=== PATIENT | male | born 1975 | race African-American/Black ===

== ENCOUNTER 2019-01-11 18:25 | Inpatient (IN) ==
[2019-01-11] MEDS ORDERED: ASPIRIN 325 MG TABLET PO STA (19:02)
[2019-01-11] MEDS ORDERED: ALUM/MAG/SIMETH/LIDO VISC 1:1 30 ML BOTTLE PO STA (19:09)
[2019-01-11] MEDS ORDERED: FAMOTIDINE 20 MG/2 ML VIAL IV STA (19:09)
[2019-01-11] MEDS ORDERED: SODIUM CHLORIDE 0.9% 1,000 ML IV STA (19:09)
[2019-01-11] MEDS ORDERED: ONDANSETRON 4 MG/2 ML VIAL IV STA (19:09)
[2019-01-11 19:12] LABS: Basophils # 0.1 10*3/uL (0.0-0.2); Basophils % 0.4 % (0.0-0.8); Eosinophils % 0.1 % (0.00-10.9); Hematocrit 51.6 VOL% (42.0-52.0); Hemoglobin 17.5 GM/DL (14.0-18.0); Immature Granulocytes % 0.8 %; Immature Granulocytes Absolute 0.11 #; Lymphocytes # 0.5 10*3/uL (1.4-4.0); Lymphocytes % 3.2 % (21.2-54.2); Mean Corpuscular HGB Conc 33.9 GM/DL (32-36); Mean Corpuscular Volume 96.4 FL (87-102); Mean Platelet Volume 10.3 FL (9.6-12.0); Monocytes % 3.8 % (1.7-12.7); Neutrophils % 91.7 % (38.7-73.9); Platelet Count 236 T/CUMM (130-400); Red Blood Count 5.35 MC/CUMM (3.8-5.5); Red Cell Distribution Width 14.1 % (9.3-17.3); White Blood Count 14.1 T/CUMM (4-12)
[2019-01-11 19:22] LABS: Bilirubin,Total 1.2 MG/DL (0.2-1.0); Osmolality,Calculated 272.7 MOS/KG (273-304); Total Protein 7.9 G/DL (6.4-8.3)
[2019-01-11 19:38] LABS: Lymphocytes 4 % (20-55); Segmented Neutrophils 95 % (50-85)
[2019-01-11 19:39] LABS: Platelet Estimate Adequate; Total Cells Counted 100
[2019-01-11] MEDS ORDERED: MORPHINE 4 MG/1 ML VIAL IV STA (22:15)
[2019-01-11] MEDS ORDERED: THIAMINE INJ 100 MG, FOLIC ACID INJ 1 MG, MAGNESIUM SULF INJ 2 GM, MULTIVITAMIN INJ 10 ... IV ONE (23:39)
[2019-01-12] MEDS ORDERED: ONDANSETRON 4 MG/2 ML VIAL IV PRN (00:30)
[2019-01-12] MEDS ORDERED: ZALEPLON 5 MG CAPSULE PO PRN (00:30)
[2019-01-12] MEDS ORDERED: PROMETHAZINE 25 MG TABLET PO PRN (00:30)
[2019-01-12] MEDS ORDERED: MORPHINE 4 MG/1 ML VIAL IV PRN (00:30)
[2019-01-12] MEDS ORDERED: DOCUSATE SODIUM 100 MG CAPSULE PO PRN (00:30)
[2019-01-12] MEDS ORDERED: LORazepam 2 MG/1 ML VIAL IV PRN (00:34)
[2019-01-12] MEDS ORDERED: hydrALAZINE 20 MG/1 ML VIAL IV PRN (00:35)
[2019-01-12] MEDS: cefTRIAXone 1,000 MG in SYRINGE 1 EACH IV SCH (02:21)
[2019-01-12] MEDS: amLODIPine 5 MG TABLET PO SCH ×2 (02:21→09:02)
[2019-01-12] MEDS: metroNIDAZOLE INJ 500 MG in PREMIX 1 EACH IV SCH ×3 (02:28→17:22)
[2019-01-12 05:33] LABS: Basophils % 0.1 % (0.0-0.8); Eosinophils % 0.1 % (0.00-10.9); Hematocrit 46.3 VOL% (42.0-52.0); Hemoglobin 15.7 GM/DL (14.0-18.0); Immature Granulocytes % 0.6 %; Immature Granulocytes Absolute 0.09 #; Lymphocytes # 0.7 10*3/uL (1.4-4.0); Lymphocytes % 4.9 % (21.2-54.2); Mean Corpuscular HGB Conc 33.9 GM/DL (32-36); Mean Corpuscular Volume 96.9 FL (87-102); Mean Platelet Volume 10.1 FL (9.6-12.0); Neutrophils % 87.3 % (38.7-73.9); Platelet Count 212 T/CUMM (130-400); Red Blood Count 4.78 MC/CUMM (3.8-5.5); Red Cell Distribution Width 13.7 % (9.3-17.3); White Blood Count 14.4 T/CUMM (4-12)
[2019-01-12 06:02] LABS: Albumin 3.2 G/DL (3.4-5.0); Bilirubin,Total 1.1 MG/DL (0.2-1.0); Calcium 8.3 MG/DL (8.5-10.1); Osmolality,Calculated 273.5 MOS/KG (273-304); Total Protein 6.7 G/DL (6.4-8.3)
[2019-01-12 06:11] LABS: Lymphocytes 3 % (20-55); Segmented Neutrophils 94 % (50-85); Total Cells Counted 100
[2019-01-12 06:12] LABS: Platelet Estimate Adequate; Polychromasia Few
[2019-01-12 07:04] LABS: Apearance,Urine CLEAR (Clear); Bacteria,Urine Occasional /HPF (Few); Bilirubin,Urine Negative (Negative); Blood, Urine Negative (Negative); Glucose,Urine (UA) >=500 mg/dL (Negative); Ketones,Urine Negative (Negative); Mucus,Urine Occasional /LPF (Occasional); Nitrite,Urine Negative (Negative); Protein,Urine Negative; RBC,Urine 2 /HPF (0-4); Squamous Epithelial Cell,Urine Occasional /HPF (0-10); Urine Color Yellow (Yellow); Urine Specific Gravity 1.028 (1.001-1.035); Urine Urobilinogen < 2.0 EU/DL (0.2-1.0); WBC,Urine 3 /HPF (0-6)
[2019-01-12] MEDS: ENOXAPARIN 40 MG/0.4 ML SYRINGE SUBCUT SCH (09:18)
[2019-01-12] MEDS: NICOTINE 21 MG/24 HR PATCH TRANSDERM SCH (09:18)
[2019-01-12] MEDS ORDERED: LACTATED RINGERS 1,000 ML IV SCH (21:30)
[2019-01-13] MEDS ORDERED: THIAMINE INJ 100 MG, FOLIC ACID INJ 1 MG, MULTIVITAMIN INJ 10 ML in DEXTROSE 5% NACL 0.... IV SCH
[2019-01-13] MEDS: metroNIDAZOLE INJ 500 MG in PREMIX 1 EACH IV SCH ×3 (02:05→09:09)
[2019-01-13] MEDS: cefTRIAXone 1,000 MG in SYRINGE 1 EACH IV SCH (02:06)
[2019-01-13] MEDS ORDERED: PHENYTOIN ER 100 MG CAPSULE PO SCH (09:00)
[2019-01-13] MEDS: amLODIPine 5 MG TABLET PO SCH (09:06)
[2019-01-13] MEDS: NICOTINE 21 MG/24 HR PATCH TRANSDERM SCH (09:06)
[2019-01-13] MEDS: ENOXAPARIN 40 MG/0.4 ML SYRINGE SUBCUT SCH (09:06)
[2019-01-13 12:31] VITALS: BP 153/98
== END 2019-01-13 12:32 | disposition home or self-care (01) | DRG 439 ==
LOC: N.ED 18:25 → N.EDINP 01-12 00:30 → SUATTDRO 01-12 00:30 → N.5E 01-12 01:03
PROVIDERS: ADMIT Hospitalist; ATTEND Internal Medicine Nephrology

== ENCOUNTER 2021-07-20 11:25 | Inpatient (IN) ==
[2021-07-20 12:04] LABS: Basophils # 0.1 10*3/uL (0.0-0.2); Basophils % 0.4 % (0.0-0.8); Hematocrit 48.2 VOL% (42.0-52.0); Hemoglobin 15.3 GM/DL (14.0-18.0); Immature Granulocytes % 1.9 %; Immature Granulocytes Absolute 0.39 #; Lymphocytes # 0.6 10*3/uL (1.4-4.0); Lymphocytes % 3.1 % (21.2-54.2); Mean Corpuscular HGB Conc 31.7 GM/DL (32-36); Mean Corpuscular Volume 115.6 FL (87-102); Mean Platelet Volume 10.7 FL (9.6-12.0); Neutrophils % 89.6 % (38.7-73.9); Platelet Count 191 T/CUMM (130-400); Red Blood Count 4.17 MC/CUMM (3.8-5.5); White Blood Count 20.5 T/CUMM (4-12)
[2021-07-20 12:26] LABS: Albumin 3.7 G/DL (3.4-5.0); Bilirubin,Total 2.9 MG/DL (0.20-1.00); Osmolality,Calculated 254.2 MOS/KG (273-304); Potassium 5.6 MMOL/L (3.5-5.1); Total Protein 7.6 G/DL (6.4-8.2)
[2021-07-20 12:29] LABS: Lymphocytes 3 % (20-55); Platelet Estimate Adequate; Total Cells Counted 100
[2021-07-20 12:30] LABS: Anisocytosis 1+; Macrocytosis 1+
[2021-07-20] MEDS ORDERED: SODIUM CHLORIDE 0.9% 1,000 ML IV STA (15:17)
[2021-07-20 15:19] LABS: Hyaline Casts,Urine 82 /LPF (0-3); Mucus,Urine Occasional /LPF (Occasional); RBC,Urine 2 /HPF (0-4); Squamous Epithelial Cell,Urine Occasional /HPF (0-10)
[2021-07-20 15:21] LABS: Bilirubin,Urine Negative (Negative); Blood, Urine Moderate mg/dL (Negative); Glucose,Urine (UA) Negative (Negative); Ketones,Urine 15 mg/dL (Negative); Nitrite,Urine Negative (Negative); Protein,Urine 30 mg/dL (Negative); Urine Appearance Clear (Clear); Urine Color Yellow (Yellow); Urine Urobilinogen 0.2 eU/dL (<2.0); Urine pH 5.5 (4.5-8.0)
[2021-07-20] MEDS ORDERED: ONDANSETRON 4 MG/2 ML VIAL IV STA (15:21)
[2021-07-20] MEDS ORDERED: MORPHINE 2 MG/1 ML SYRINGE IV STA (15:21)
[2021-07-20] MEDS ORDERED: PIPERACILLIN/TAZOBACTAM 3,375 MG in SODIUM CHLORIDE 0.9% 100 ML IV STA (15:22)
[2021-07-20] MEDS ORDERED: MORPHINE 2 MG/1 ML SYRINGE ONE (15:24)
[2021-07-20 15:25] LABS: Barbiturates Screen,Urine Negative (Negative); Benzodiazepines Screen,Urine Negative (Negative); Cannabinoid Screen,Urine Negative (Negative); Opiate Screen,Urine Negative (Negative); Phencyclidine Screen,Urine Negative (Negative)
[2021-07-20] MEDS ORDERED: SODIUM CHLORIDE 0.9% 2,400 ML IV ONE (16:58)
[2021-07-20] MEDS ORDERED: hydrALAZINE 20 MG/1 ML VIAL IV PRN (17:18)
[2021-07-20] MEDS ORDERED: ONDANSETRON 4 MG/2 ML VIAL IV PRN (17:18)
[2021-07-20] MEDS ORDERED: ACETAMINOPHEN 325 MG TABLET PO PRN (17:18)
[2021-07-20] MEDS ORDERED: GLUCAGON 1 MG VIAL IM PRN (17:18)
[2021-07-20] MEDS ORDERED: DEXTROSE 10% 250 ML BAG IV PRN (17:25)
[2021-07-20 17:57] LABS: Arterial Base Excess iSTAT -20 MMOL/L (-2.5-2.5); Arterial Bicarbonate iSTAT 6.5 MMOL/L (20-26); Arterial O2 Saturation iSTAT 98 % (95-100); Arterial PCO2 iSTAT 19 MM HG (35-48); Arterial PO2 iSTAT 124 MM HG (80-95); Arterial Total CO2 iSTAT 7 MMO/L (23-27); Arterial pH iSTAT 7.157 (7.35-7.45)
[2021-07-20] MEDS: LORazepam 2 MG/1 ML VIAL IV PRN (18:25)
[2021-07-20] MEDS ORDERED: DIAZEPAM 10 MG/2 ML SYRINGE IV ONE (19:29)
[2021-07-20] MEDS ORDERED: diphenhydrAMINE 50 MG/1 ML VIAL IV ONE (19:50)
[2021-07-20] MEDS ORDERED: HALOPERIDOL 5 MG/ML AMP IM ONE (19:50)
[2021-07-20] MEDS: SODIUM ZIRCONIUM CYCLOSILICATE 10 GM PACK PO SCH (20:24)
[2021-07-20] MEDS: SODIUM BICARB INJ 150 MEQ in DEXTROSE 5% 1,000 ML IV SCH (20:28)
[2021-07-20 20:54] LABS: Arterial Base Excess iSTAT -21 MMOL/L (-2.5-2.5); Arterial Bicarbonate iSTAT 6.8 MMOL/L (20-26); Arterial O2 Saturation iSTAT 96 % (95-100); Arterial PCO2 iSTAT 21 MM HG (35-48); Arterial PO2 iSTAT 105 MM HG (80-95); Arterial Total CO2 iSTAT 7 MMO/L (23-27); Arterial pH iSTAT 7.121 (7.35-7.45)
[2021-07-20 20:55] LABS: Basophils % 0.1 % (0.0-0.8); Hematocrit 39.3 VOL% (42.0-52.0); Hemoglobin 12.4 GM/DL (14.0-18.0); Immature Granulocytes % 1.6 %; Immature Granulocytes Absolute 0.41 #; Lymphocytes # 0.6 10*3/uL (1.4-4.0); Lymphocytes % 2.2 % (21.2-54.2); Mean Corpuscular HGB Conc 31.6 GM/DL (32-36); Mean Corpuscular Volume 116.3 FL (87-102); Mean Platelet Volume 10.6 FL (9.6-12.0); Monocytes # 1.5 10*3/uL (0.11-0.8); Monocytes % 5.8 % (1.7-12.7); Neutrophils % 90.3 % (38.7-73.9); Platelet Count 160 T/CUMM (130-400); Red Blood Count 3.38 MC/CUMM (3.8-5.5); Red Cell Distribution Width 15.9 % (9.3-17.3); White Blood Count 25.3 T/CUMM (4-12)
[2021-07-20 21:20] LABS: Lymphocytes 4 % (20-55); Total Cells Counted 100
[2021-07-20 21:21] LABS: Platelet Estimate Adequate
[2021-07-20 21:22] LABS: Macrocytosis 1+
[2021-07-20] MEDS ORDERED: SODIUM CHLORIDE 0.9% 1,000 ML IV ONE (21:33)
[2021-07-20] MEDS ORDERED: SODIUM BICARBONATE 50 MEQ/50 ML VIAL IV ONE (21:34)
[2021-07-20] MEDS ORDERED: VANCOMYCIN INJ 1,250 MG in SODIUM CHLORIDE 0.9% 250 ML IV SCH (22:00)
[2021-07-20] MEDS: PIPERACILLIN/TAZOBACTAM 3,375 MG in SODIUM CHLORIDE 0.9% 100 ML IV SCH ×2 (22:23→22:24)
[2021-07-21 00:03] LABS: Arterial Base Excess iSTAT -18 MMOL/L (-2.5-2.5); Arterial Bicarbonate iSTAT 8.4 MMOL/L (20-26); Arterial O2 Saturation iSTAT 96 % (95-100); Arterial PCO2 iSTAT 23 MM HG (35-48); Arterial PO2 iSTAT 104 MM HG (80-95); Arterial Total CO2 iSTAT 9 MMO/L (23-27); Arterial pH iSTAT 7.176 (7.35-7.45)
[2021-07-21 00:08] LABS: Albumin 2.7 G/DL (3.4-5.0); Bilirubin,Total 2.7 MG/DL (0.20-1.00); Calcium 8.9 MG/DL (8.5-10.1); Osmolality,Calculated 253.4 MOS/KG (273-304); Total Protein 5.8 G/DL (6.4-8.2)
[2021-07-21 00:11] LABS: Potassium 6.3 MMOL/L (3.5-5.1)
[2021-07-21] MEDS: PIPERACILLIN/TAZOBACTAM 3,375 MG in SODIUM CHLORIDE 0.9% 100 ML IV SCH ×2 (01:34→08:46)
[2021-07-21] MEDS: LORazepam 2 MG/1 ML VIAL IV PRN ×3 (01:35→13:37)
[2021-07-21] MEDS: SODIUM POLYSTYRENE SULFATE 15 GM/60 ML BOTTLE RECTAL ONE ×2 (01:36→03:40)
[2021-07-21] MEDS: SODIUM ZIRCONIUM CYCLOSILICATE 10 GM PACK PO SCH ×4 (01:37→20:45)
[2021-07-21 02:15] LABS: Basophils # 0.1 10*3/uL (0.0-0.2); Basophils % 0.2 % (0.0-0.8); Hematocrit 38.8 VOL% (42.0-52.0); Hemoglobin 12.3 GM/DL (14.0-18.0); Immature Granulocytes % 0.9 %; Immature Granulocytes Absolute 0.25 #; Lymphocytes # 0.6 10*3/uL (1.4-4.0); Lymphocytes % 2.1 % (21.2-54.2); Mean Corpuscular HGB Conc 31.7 GM/DL (32-36); Mean Corpuscular Volume 114.5 FL (87-102); Mean Platelet Volume 10.6 FL (9.6-12.0); Monocytes % 3.8 % (1.7-12.7); Platelet Count 141 T/CUMM (130-400); Red Blood Count 3.39 MC/CUMM (3.8-5.5); Red Cell Distribution Width 15.7 % (9.3-17.3); White Blood Count 26.5 T/CUMM (4-12)
[2021-07-21 02:26] LABS: PT Patient Result 21.2 SECS (10.5-12.0)
[2021-07-21 02:37] LABS: Platelet Estimate Adequate; Total Cells Counted 100
[2021-07-21 02:38] LABS: Macrocytosis 2+
[2021-07-21 02:40] LABS: Albumin 2.9 G/DL (3.4-5.0); Bilirubin,Total 2.9 MG/DL (0.20-1.00); Osmolality,Calculated 252.5 MOS/KG (273-304); Potassium 5.9 MMOL/L (3.5-5.1); Risk Ratio 4.85; Thyroid Stimulating Hormone 2.29 uIU/ml (0.358-3.74); Total Protein 5.8 G/DL (6.4-8.2); VLDL Cholesterol 36.6 MG/DL
[2021-07-21] MEDS ORDERED: HALOPERIDOL 5 MG/ML AMP IM ONE (02:54)
[2021-07-21] MEDS ORDERED: INSULIN REGULAR 10 UNIT, CALCIUM GLUCONATE 1,000 MG in DEXTROSE 10% 250 ML IV ONE (03:15)
[2021-07-21] MEDS ORDERED: HALOPERIDOL 5 MG/ML AMP IM PRN ×2 (03:24→10:15)
[2021-07-21 03:30] LABS: Bacteria,Urine Occasional /HPF (Few); Hyaline Casts,Urine 46 /LPF (0-3); Mucus,Urine Occasional /LPF (Occasional); RBC,Urine 5 /HPF (0-4); Squamous Epithelial Cell,Urine Occasional /HPF (0-10); Urine Appearance Clear (Clear); Urine Color Dark Yellow (Yellow)
[2021-07-21 03:31] LABS: Bilirubin,Urine Negative (Negative); Blood, Urine Moderate mg/dL (Negative); Glucose,Urine (UA) Negative (Negative); Ketones,Urine 40 mg/dL (Negative); Nitrite,Urine Negative (Negative); Protein,Urine 30 mg/dL (Negative); Urine Specific Gravity > 1.030 (1.001-1.035); Urine pH 5.5 (4.5-8.0)
[2021-07-21] MEDS: NICOTINE 21 MG/24 HR PATCH TRANSDERM SCH ×2 (04:21→08:52)
[2021-07-21 06:38] LABS: CKMB % 3.75 %
[2021-07-21 07:03] LABS: Arterial Base Excess iSTAT -13 MMOL/L (-2.5-2.5); Arterial Bicarbonate iSTAT 11.5 MMOL/L (20-26); Arterial O2 Saturation iSTAT 96 % (95-100); Arterial PCO2 iSTAT 23 MM HG (35-48); Arterial PO2 iSTAT 91 MM HG (80-95); Arterial Total CO2 iSTAT 12 MMO/L (23-27); Arterial pH iSTAT 7.299 (7.35-7.45)
[2021-07-21] MEDS: SODIUM BICARB INJ 150 MEQ in DEXTROSE 5% 1,000 ML IV SCH ×3 (08:13→18:33)
[2021-07-21] MEDS ORDERED: LACTATED RINGERS 2,000 ML IV ONE (08:49)
[2021-07-21] MEDS: PANTOPRAZOLE 40 MG VIAL IV SCH (08:52)
[2021-07-21] MEDS: THIAMINE 200 MG/2 ML VIAL IV SCH (08:54)
[2021-07-21] MEDS: PHENYTOIN 100 MG/2 ML VIAL IV SCH ×2 (09:18→17:31)
[2021-07-21] MEDS: MORPHINE 2 MG/1 ML SYRINGE IV PRN (10:13)
[2021-07-21] MEDS: FOLIC ACID 1 MG TABLET PO SCH (10:26)
[2021-07-21] MEDS: MULTIVITAMIN (CENTRUM) TABLET PO SCH (10:26)
[2021-07-21 12:23] LABS: Hepatitis B Core IgM Quant < 0.05 Index; Hepatitis B Surface Ag Quant < 0.10 Index; Hepatitis B Surface Ag Result Non-Reactive (NonReactive); Hepatitis C Virus Ab Quant 0.04 Index; Hepatitis C Virus Ab Result Non-Reactive (NonReactive)
[2021-07-21 15:51] LABS: Calcium 8.8 MG/DL (8.5-10.1); Osmolality,Calculated 260.9 MOS/KG (273-304); Potassium 5.6 MMOL/L (3.5-5.1)
[2021-07-21] MEDS ORDERED: MAGNESIUM SULF RIDER 2 GM/50 ML PREMIX IV ONE (15:58)
[2021-07-21] MEDS: INSULIN LISPRO 100 UNIT/ML SUBCUT SCH (18:32)
[2021-07-21] MEDS: cefTRIAXone 2,000 MG in SODIUM CHLORIDE 0.9% 100 ML IV SCH (20:52)
[2021-07-21] MEDS ORDERED: VANCOMYCIN INJ 1,250 MG in SODIUM CHLORIDE 0.9% 250 ML IV SCH (21:00)
[2021-07-22] MEDS: LORazepam 2 MG/1 ML VIAL IV PRN ×3 (00:07→17:05)
[2021-07-22] MEDS: INSULIN LISPRO 100 UNIT/ML SUBCUT SCH ×4 (00:26→18:19)
[2021-07-22] MEDS: PHENYTOIN 100 MG/2 ML VIAL IV SCH ×3 (00:27→17:07)
[2021-07-22 03:50] LABS: Basophils % 0.3 % (0.0-0.8); Hemoglobin 11.7 GM/DL (14.0-18.0); Immature Granulocytes % 1.3 %; Immature Granulocytes Absolute 0.14 #; Lymphocytes # 0.4 10*3/uL (1.4-4.0); Lymphocytes % 3.6 % (21.2-54.2); Mean Corpuscular HGB Conc 34.4 GM/DL (32-36); Mean Corpuscular Volume 104.6 FL (87-102); Mean Platelet Volume 11.2 FL (9.6-12.0); Monocytes # 0.3 10*3/uL (0.11-0.8); Monocytes % 2.6 % (1.7-12.7); NRBC # 0.03 10*3/uL; Neutrophils % 92.2 % (38.7-73.9); Platelet Count 75 T/CUMM (130-400); Red Blood Count 3.25 MC/CUMM (3.8-5.5); Red Cell Distribution Width 15.8 % (9.3-17.3); White Blood Count 10.5 T/CUMM (4-12)
[2021-07-22 04:05] LABS: Albumin 2.2 G/DL (3.4-5.0); Osmolality,Calculated 263.7 MOS/KG (273-304); Potassium 4.9 MMOL/L (3.5-5.1); Total Protein 4.5 G/DL (6.4-8.2)
[2021-07-22 04:10] LABS: Band Neutrophils 1 % (0-10); Lymphocytes 1 % (20-55); Macrocytosis Slight; Total Cells Counted 100
[2021-07-22] MEDS: SODIUM BICARB INJ 150 MEQ in DEXTROSE 5% 1,000 ML IV SCH ×3 (04:33→13:30)
[2021-07-22 05:09] LABS: Arterial Base Excess iSTAT 2 MMOL/L (-2.5-2.5); Arterial Bicarbonate iSTAT 25.6 MMOL/L (20-26); Arterial O2 Saturation iSTAT 98 % (95-100); Arterial PCO2 iSTAT 36 MM HG (35-48); Arterial PO2 iSTAT 92 MM HG (80-95); Arterial Total CO2 iSTAT 27 MMO/L (23-27); Arterial pH iSTAT 7.455 (7.35-7.45)
[2021-07-22] MEDS: PANTOPRAZOLE 40 MG VIAL IV SCH (08:54)
[2021-07-22] MEDS: THIAMINE 200 MG/2 ML VIAL IV SCH (08:55)
[2021-07-22] MEDS: NICOTINE 21 MG/24 HR PATCH TRANSDERM SCH (08:55)
[2021-07-22] MEDS: MULTIVITAMIN (CENTRUM) TABLET PO SCH (12:29)
[2021-07-22] MEDS: FOLIC ACID 1 MG TABLET PO SCH (12:30)
[2021-07-22] MEDS: SODIUM ZIRCONIUM CYCLOSILICATE 10 GM PACK PO SCH (12:31)
[2021-07-22] MEDS: cefTRIAXone 2,000 MG in SODIUM CHLORIDE 0.9% 100 ML IV SCH (20:38)
[2021-07-23] MEDS: SODIUM BICARB INJ 150 MEQ in DEXTROSE 5% 1,000 ML IV SCH ×2 (00:09→10:25)
[2021-07-23] MEDS: PHENYTOIN 100 MG/2 ML VIAL IV SCH ×3 (00:09→18:00)
[2021-07-23] MEDS: INSULIN LISPRO 100 UNIT/ML SUBCUT SCH ×4 (00:25→17:57)
[2021-07-23] MEDS: LORazepam 2 MG/1 ML VIAL IV PRN (04:28)
[2021-07-23 07:02] LABS: Basophils % 0.3 % (0.0-0.8); Hematocrit 32.9 VOL% (42.0-52.0); Hemoglobin 11.5 GM/DL (14.0-18.0); Immature Granulocytes % 33.8 %; Immature Granulocytes Absolute 1.05 #; Lymphocytes # 0.4 10*3/uL (1.4-4.0); Lymphocytes % 11.3 % (21.2-54.2); Mean Corpuscular Volume 103.1 FL (87-102); Monocytes # 0.2 10*3/uL (0.11-0.8); Monocytes % 5.1 % (1.7-12.7); NRBC # 0.08 10*3/uL; Neutrophils % 48.5 % (38.7-73.9); Platelet Count 43 T/CUMM (130-400); Red Blood Count 3.19 MC/CUMM (3.8-5.5); Red Cell Distribution Width 16.2 % (9.3-17.3); White Blood Count 3.1 T/CUMM (4-12)
[2021-07-23 07:27] LABS: Albumin 2.1 G/DL (3.4-5.0); Calcium 7.7 MG/DL (8.5-10.1); Osmolality,Calculated 261.8 MOS/KG (273-304); Potassium 3.9 MMOL/L (3.5-5.1); Total Protein 4.6 G/DL (6.4-8.2)
[2021-07-23 07:29] LABS: Band Neutrophils 1 % (0-10); Eosinophils 2 % (0-10); Hypochromia 1+; Lymphocytes 4 % (20-55); Nucleated Red Blood Cells 2 (0-5); Total Cells Counted 100
[2021-07-23 07:30] LABS: Macrocytosis 1+; Polychromasia Slight; Target Cells Slight
[2021-07-23 07:31] LABS: Platelet Estimate Decreased
[2021-07-23] MEDS: MULTIVITAMIN (CENTRUM) TABLET PO SCH (08:46)
[2021-07-23] MEDS: FOLIC ACID 1 MG TABLET PO SCH (08:48)
[2021-07-23] MEDS: NICOTINE 21 MG/24 HR PATCH TRANSDERM SCH (09:03)
[2021-07-23] MEDS: PANTOPRAZOLE 40 MG VIAL IV SCH (09:05)
[2021-07-23] MEDS: THIAMINE 200 MG/2 ML VIAL IV SCH (09:07)
[2021-07-23] MEDS: LEVOFLOXACIN INJ 500 MG/100 ML PREMIX IV SCH (09:08)
[2021-07-23] MEDS: LACTATED RINGERS 1,000 ML IV SCH ×3 (13:28→21:06)
[2021-07-23] MEDS: MORPHINE 2 MG/1 ML SYRINGE IV PRN (21:58)
[2021-07-24] MEDS: PHENYTOIN 100 MG/2 ML VIAL IV SCH ×3 (00:19→18:30)
[2021-07-24] MEDS: DEXTROSE 10% 250 ML BAG IV PRN (00:19)
[2021-07-24] MEDS: INSULIN LISPRO 100 UNIT/ML SUBCUT SCH ×4 (00:19→18:33)
[2021-07-24] MEDS: LACTATED RINGERS 1,000 ML IV SCH ×5 (01:05→23:45)
[2021-07-24 03:58] LABS: Basophils % 0.6 % (0.0-0.8); Eosinophils # 0.1 10*3/uL (0.0-0.87); Eosinophils % 4.2 % (0.00-10.9); Hematocrit 29.7 VOL% (42.0-52.0); Hemoglobin 10.3 GM/DL (14.0-18.0); Immature Granulocytes % 35.3 %; Immature Granulocytes Absolute 0.59 #; Lymphocytes # 0.3 10*3/uL (1.4-4.0); Lymphocytes % 20.4 % (21.2-54.2); Mean Corpuscular HGB Conc 34.7 GM/DL (32-36); Mean Corpuscular Volume 104.2 FL (87-102); Mean Platelet Volume 12.3 FL (9.6-12.0); Monocytes # 0.2 10*3/uL (0.11-0.8); Monocytes % 10.2 % (1.7-12.7); NRBC # 0.04 10*3/uL; Neutrophils % 29.3 % (38.7-73.9); Red Blood Count 2.85 MC/CUMM (3.8-5.5); Red Cell Distribution Width 16.2 % (9.3-17.3)
[2021-07-24 04:03] LABS: Platelet Count 42 T/CUMM (130-400); White Blood Count 1.7 T/CUMM (4-12)
[2021-07-24] MEDS: LORazepam 2 MG/1 ML VIAL IV PRN (04:10)
[2021-07-24 04:14] LABS: Albumin 1.8 G/DL (3.4-5.0); Bilirubin,Total 9.6 MG/DL (0.20-1.00); Calcium 7.4 MG/DL (8.5-10.1); Osmolality,Calculated 266.5 MOS/KG (273-304); Total Protein 4.3 G/DL (6.4-8.2)
[2021-07-24 04:58] LABS: Eosinophils 4 % (0-10); Lymphocytes 14 % (20-55); Nucleated Red Blood Cells 3 (0-5); Total Cells Counted 100
[2021-07-24 04:59] LABS: Hypochromia Slight; Macrocytosis 1+
[2021-07-24 05:00] LABS: Platelet Estimate Decreased; Target Cells Few
[2021-07-24] MEDS ORDERED: CALCIUM GLUCONATE RIDER 2,000 MG/100 ML PREMIX IV ONE (08:03)
[2021-07-24] MEDS: MULTIVITAMIN (CENTRUM) TABLET PO SCH (09:02)
[2021-07-24] MEDS: FOLIC ACID 1 MG TABLET PO SCH (09:02)
[2021-07-24] MEDS: methylPREDNISolone SOD SUC 40 MG/1 ML VIAL IV SCH (09:15)
[2021-07-24] MEDS: PANTOPRAZOLE 40 MG VIAL IV SCH (09:15)
[2021-07-24] MEDS: NICOTINE 21 MG/24 HR PATCH TRANSDERM SCH (09:16)
[2021-07-24] MEDS: THIAMINE 200 MG/2 ML VIAL IV SCH (09:16)
[2021-07-24] MEDS: LEVOFLOXACIN INJ 500 MG/100 ML PREMIX IV SCH (09:28)
[2021-07-24] MEDS: MORPHINE 2 MG/1 ML SYRINGE IV PRN (22:15)
[2021-07-25] MEDS: INSULIN LISPRO 100 UNIT/ML SUBCUT SCH ×4 (01:11→19:37)
[2021-07-25] MEDS: PHENYTOIN 100 MG/2 ML VIAL IV SCH ×3 (01:16→19:27)
[2021-07-25 04:24] LABS: Basophils % 0.9 % (0.0-0.8); Eosinophils % 0.9 % (0.00-10.9); Hematocrit 32.1 VOL% (42.0-52.0); Immature Granulocytes % 3.5 %; Immature Granulocytes Absolute 0.04 #; Lymphocytes # 0.3 10*3/uL (1.4-4.0); Lymphocytes % 25.2 % (21.2-54.2); Mean Corpuscular HGB Conc 34.3 GM/DL (32-36); Mean Corpuscular Volume 105.6 FL (87-102); Mean Platelet Volume 12.3 FL (9.6-12.0); Monocytes # 0.2 10*3/uL (0.11-0.8); Monocytes % 13.9 % (1.7-12.7); NRBC # 0.02 10*3/uL; Neutrophils % 55.6 % (38.7-73.9); Red Blood Count 3.04 MC/CUMM (3.8-5.5); Red Cell Distribution Width 16.5 % (9.3-17.3); White Blood Count 1.2 T/CUMM (4-12)
[2021-07-25 04:32] LABS: Platelet Count 40 T/CUMM (130-400)
[2021-07-25 04:34] LABS: INR 1.5; PT Patient Result 16.1 SECS (10.5-12.0)
[2021-07-25 04:42] LABS: Osmolality,Calculated 273.2 MOS/KG (273-304); Potassium 4.5 MMOL/L (3.5-5.1); Total Protein 4.8 G/DL (6.4-8.2)
[2021-07-25 04:45] LABS: Bilirubin,Total 12.1 MG/DL (0.20-1.00)
[2021-07-25 04:51] LABS: Lymphocytes 23 % (20-55); Nucleated Red Blood Cells 4 (0-5); Total Cells Counted 100
[2021-07-25 04:53] LABS: Platelet Estimate Decreased
[2021-07-25] MEDS: LACTATED RINGERS 1,000 ML IV SCH ×4 (05:40→19:22)
[2021-07-25 06:02] LABS: Bilirubin,Direct 9.24 MG/DL (0.0-0.20); Bilirubin,Indirect 2.6 MG/DL (0.0-1.0); Bilirubin,Total 11.8 MG/DL (0.20-1.00)
[2021-07-25] MEDS: MORPHINE 2 MG/1 ML SYRINGE IV PRN ×2 (07:41→14:43)
[2021-07-25] MEDS: MULTIVITAMIN (CENTRUM) TABLET PO SCH (08:38)
[2021-07-25] MEDS: FOLIC ACID 1 MG TABLET PO SCH (08:38)
[2021-07-25] MEDS: THIAMINE 200 MG/2 ML VIAL IV SCH ×3 (08:55→22:51)
[2021-07-25] MEDS: PANTOPRAZOLE 40 MG VIAL IV SCH (08:58)
[2021-07-25] MEDS: NICOTINE 21 MG/24 HR PATCH TRANSDERM SCH (08:58)
[2021-07-25] MEDS: methylPREDNISolone SOD SUC 40 MG/1 ML VIAL IV SCH (08:59)
[2021-07-25] MEDS: DEXMEDETOMIDINE 200 MCG in SODIUM CHLORIDE 0.9% 48 ML IV PRN ×2 (08:59→20:45)
[2021-07-25 09:04] LABS: Uric Acid 6.2 MG/DL (3.5-7.2)
[2021-07-25] MEDS: LORazepam 2 MG/1 ML VIAL IV PRN (22:07)
[2021-07-26] MEDS: INSULIN LISPRO 100 UNIT/ML SUBCUT SCH ×5 (00:22→23:51)
[2021-07-26] MEDS: PHENYTOIN 100 MG/2 ML VIAL IV SCH ×3 (00:23→18:36)
[2021-07-26] MEDS: LACTATED RINGERS 1,000 ML IV SCH ×5 (00:45→19:09)
[2021-07-26] MEDS: LORazepam 2 MG/1 ML VIAL IV PRN ×2 (03:45→23:10)
[2021-07-26 04:04] LABS: Basophils % 0.9 % (0.0-0.8); Eosinophils % 0.9 % (0.00-10.9); Hematocrit 25.2 VOL% (42.0-52.0); Hemoglobin 8.4 GM/DL (14.0-18.0); Immature Granulocytes % 7.3 %; Immature Granulocytes Absolute 0.08 #; Lymphocytes # 0.4 10*3/uL (1.4-4.0); Mean Corpuscular HGB Conc 33.3 GM/DL (32-36); Mean Corpuscular Volume 108.2 FL (87-102); Mean Platelet Volume 12.8 FL (9.6-12.0); Monocytes # 0.1 10*3/uL (0.11-0.8); Monocytes % 10.1 % (1.7-12.7); NRBC # 0.02 10*3/uL; Neutrophils % 47.8 % (38.7-73.9); Red Blood Count 2.33 MC/CUMM (3.8-5.5); Red Cell Distribution Width 16.4 % (9.3-17.3); White Blood Count 1.1 T/CUMM (4-12)
[2021-07-26 04:07] LABS: Platelet Count 24 T/CUMM (130-400)
[2021-07-26 04:34] LABS: Albumin 1.7 G/DL (3.4-5.0); Bilirubin,Total 11.7 MG/DL (0.20-1.00); Calcium 7.7 MG/DL (8.5-10.1); Potassium 4.6 MMOL/L (3.5-5.1); Total Protein 4.2 G/DL (6.4-8.2)
[2021-07-26 04:43] LABS: Eosinophils 1 % (0-10); Lymphocytes 18 % (20-55); Nucleated Red Blood Cells 5 (0-5); Total Cells Counted 100
[2021-07-26 04:44] LABS: Macrocytosis 1+; Platelet Estimate Decreased; Target Cells Few
[2021-07-26] MEDS: MORPHINE 2 MG/1 ML SYRINGE IV PRN ×3 (07:35→22:59)
[2021-07-26] MEDS: DEXMEDETOMIDINE 200 MCG in SODIUM CHLORIDE 0.9% 48 ML IV PRN ×2 (09:12→19:40)
[2021-07-26] MEDS: FOLIC ACID 1 MG TABLET PO SCH (09:12)
[2021-07-26] MEDS: MULTIVITAMIN (CENTRUM) TABLET PO SCH (09:12)
[2021-07-26] MEDS: methylPREDNISolone SOD SUC 40 MG/1 ML VIAL IV SCH (09:39)
[2021-07-26] MEDS: THIAMINE 200 MG/2 ML VIAL IV SCH ×3 (09:39→20:03)
[2021-07-26] MEDS: LEVOFLOXACIN INJ 500 MG/100 ML PREMIX IV SCH (09:39)
[2021-07-26] MEDS: NICOTINE 21 MG/24 HR PATCH TRANSDERM SCH (09:40)
[2021-07-26] MEDS: PANTOPRAZOLE 40 MG VIAL IV SCH (09:40)
[2021-07-27] MEDS: LACTATED RINGERS 1,000 ML IV SCH ×4 (00:02→16:34)
[2021-07-27] MEDS: PHENYTOIN 100 MG/2 ML VIAL IV SCH (02:20)
[2021-07-27 04:03] LABS: Basophils % 0.6 % (0.0-0.8); Eosinophils % 0.6 % (0.00-10.9); Hematocrit 25.5 VOL% (42.0-52.0); Hemoglobin 8.6 GM/DL (14.0-18.0); Immature Granulocytes % 8.4 %; Immature Granulocytes Absolute 0.13 #; Lymphocytes # 0.2 10*3/uL (1.4-4.0); Lymphocytes % 15.5 % (21.2-54.2); Mean Corpuscular HGB Conc 33.7 GM/DL (32-36); Mean Corpuscular Volume 107.1 FL (87-102); Mean Platelet Volume 13.7 FL (9.6-12.0); Monocytes # 0.1 10*3/uL (0.11-0.8); NRBC # 0.03 10*3/uL; Neutrophils % 65.9 % (38.7-73.9); Red Blood Count 2.38 MC/CUMM (3.8-5.5); Red Cell Distribution Width 15.9 % (9.3-17.3); White Blood Count 1.6 T/CUMM (4-12)
[2021-07-27 04:11] LABS: Platelet Count 15 T/CUMM (130-400)
[2021-07-27 04:22] LABS: Albumin 1.8 G/DL (3.4-5.0); Calcium 7.9 MG/DL (8.5-10.1); Osmolality,Calculated 290.7 MOS/KG (273-304); Potassium 4.8 MMOL/L (3.5-5.1); Total Protein 4.4 G/DL (6.4-8.2)
[2021-07-27 04:30] LABS: Bilirubin,Total 14.5 MG/DL (0.20-1.00)
[2021-07-27] MEDS: LORazepam 2 MG/1 ML VIAL IV PRN ×4 (04:34→19:34)
[2021-07-27 04:44] LABS: Eosinophils 1 % (0-10); Lymphocytes 5 % (20-55); Nucleated Red Blood Cells 2 (0-5); Platelet Estimate Decreased; Total Cells Counted 100
[2021-07-27] MEDS: MORPHINE 2 MG/1 ML SYRINGE IV PRN ×3 (05:20→13:55)
[2021-07-27] MEDS: INSULIN LISPRO 100 UNIT/ML SUBCUT SCH ×3 (05:44→18:13)
[2021-07-27] MEDS: FOLIC ACID 1 MG TABLET PO SCH (08:47)
[2021-07-27] MEDS: MULTIVITAMIN (CENTRUM) TABLET PO SCH (08:47)
[2021-07-27] MEDS: NICOTINE 21 MG/24 HR PATCH TRANSDERM SCH (08:56)
[2021-07-27] MEDS: methylPREDNISolone SOD SUC 40 MG/1 ML VIAL IV SCH (08:56)
[2021-07-27] MEDS: DEXMEDETOMIDINE 200 MCG in SODIUM CHLORIDE 0.9% 48 ML IV PRN ×3 (09:00→21:26)
[2021-07-27] MEDS ORDERED: LORazepam 2 MG/1 ML VIAL ONE (09:37)
[2021-07-27 12:59] LABS: INR 1.4; PT Patient Result 15.1 SECS (10.5-12.0)
[2021-07-27 15:26] LABS: Arterial Base Excess iSTAT 7 MMOL/L (-2.5-2.5); Arterial Bicarbonate iSTAT 34.1 MMOL/L (20-26); Arterial O2 Saturation iSTAT 90 % (95-100); Arterial PCO2 iSTAT 65 MM HG (35-48); Arterial PO2 iSTAT 66 MM HG (80-95); Arterial Total CO2 iSTAT 36 MMO/L (23-27); Arterial pH iSTAT 7.325 (7.35-7.45)
[2021-07-28] MEDS: INSULIN LISPRO 100 UNIT/ML SUBCUT SCH ×4 (00:44→18:14)
[2021-07-28] MEDS: LORazepam 2 MG/1 ML VIAL IV PRN ×2 (00:58→07:56)
[2021-07-28] MEDS: DEXMEDETOMIDINE 200 MCG in SODIUM CHLORIDE 0.9% 48 ML IV PRN ×2 (01:05→04:39)
[2021-07-28] MEDS: MORPHINE 2 MG/1 ML SYRINGE IV PRN ×3 (01:24→10:36)
[2021-07-28 04:25] LABS: Basophils % 0.6 % (0.0-0.8); Eosinophils % 0.2 % (0.00-10.9); Hematocrit 25.6 VOL% (42.0-52.0); Hemoglobin 8.4 GM/DL (14.0-18.0); Immature Granulocytes Absolute 0.31 #; Lymphocytes # 0.5 10*3/uL (1.4-4.0); Lymphocytes % 9.5 % (21.2-54.2); Mean Corpuscular HGB Conc 32.8 GM/DL (32-36); Mean Corpuscular Volume 108.9 FL (87-102); Mean Platelet Volume 13.4 FL (9.6-12.0); Monocytes # 0.2 10*3/uL (0.11-0.8); Monocytes % 4.1 % (1.7-12.7); NRBC # 0.03 10*3/uL; Neutrophils % 79.6 % (38.7-73.9); Red Blood Count 2.35 MC/CUMM (3.8-5.5); Red Cell Distribution Width 16.2 % (9.3-17.3); White Blood Count 5.2 T/CUMM (4-12)
[2021-07-28 04:34] LABS: Platelet Count 15 T/CUMM (130-400)
[2021-07-28 04:50] LABS: Calcium 8.2 MG/DL (8.5-10.1); Osmolality,Calculated 304.3 MOS/KG (273-304); Phosphorous 4.9 MG/DL (2.5-4.9); Potassium 4.8 MMOL/L (3.5-5.1)
[2021-07-28 04:52] LABS: Albumin 1.9 G/DL (3.4-5.0); Calcium 7.6 MG/DL (8.5-10.1); Osmolality,Calculated 302.1 MOS/KG (273-304); Potassium 4.8 MMOL/L (3.5-5.1); Total Protein 4.7 G/DL (6.4-8.2)
[2021-07-28 04:54] LABS: Bilirubin,Total 17.9 MG/DL (0.20-1.00)
[2021-07-28 05:08] LABS: Eosinophils 1 % (0-10); Lymphocytes 9 % (20-55); Macrocytosis 1+; Total Cells Counted 100
[2021-07-28 05:09] LABS: Target Cells Slight
[2021-07-28 05:10] LABS: Platelet Estimate Decreased
[2021-07-28] MEDS: FOLIC ACID 1 MG TABLET PO SCH (08:00)
[2021-07-28] MEDS: NICOTINE 21 MG/24 HR PATCH TRANSDERM SCH (08:00)
[2021-07-28] MEDS: LEVOFLOXACIN INJ 500 MG/100 ML PREMIX IV SCH (08:00)
[2021-07-28] MEDS: methylPREDNISolone SOD SUC 40 MG/1 ML VIAL IV SCH (08:00)
[2021-07-28] MEDS: MULTIVITAMIN (CENTRUM) TABLET PO SCH (08:00)
[2021-07-28] MEDS: ALBUMIN 25% 25 GM/100 ML VIAL IV SCH ×2 (09:12→16:21)
[2021-07-28] MEDS: SODIUM CHLORIDE 0.45% 1,000 ML IV SCH ×2 (09:12→23:35)
[2021-07-28] MEDS: DEXMEDETOMIDINE 400 MCG in SODIUM CHLORIDE 0.9% 96 ML IV PRN ×2 (09:16→21:19)
[2021-07-28] MEDS ORDERED: ETOMIDATE 20 MG/10 ML VIAL IV ONE (09:48)
[2021-07-28] MEDS ORDERED: SUCCINYLCHOLINE 200 MG/10 ML VIAL IV ONE (09:49)
[2021-07-28 11:16] LABS: Arterial Base Excess iSTAT 12 MMOL/L (-2.5-2.5); Arterial Bicarbonate iSTAT 38.1 MMOL/L (20-26); Arterial O2 Saturation iSTAT 99 % (95-100); Arterial PCO2 iSTAT 61 MM HG (35-48); Arterial PO2 iSTAT 151 MM HG (80-95); Arterial Total CO2 iSTAT 40 MMO/L (23-27); Arterial pH iSTAT 7.406 (7.35-7.45)
[2021-07-28] MEDS: LACTULOSE 20 GM/30 ML UDCUP PER TUBE SCH ×3 (12:25→20:33)
[2021-07-28] MEDS: CEFEPIME 1,000 MG in SODIUM CHLORIDE 0.9% 100 ML IV SCH ×3 (12:26→21:38)
[2021-07-28 12:40] LABS: Basophils % 0.3 % (0.0-0.8); Eosinophils % 0.7 % (0.00-10.9); Hematocrit 22.2 VOL% (42.0-52.0); Hemoglobin 7.5 GM/DL (14.0-18.0); Immature Granulocytes % 6.6 %; Immature Granulocytes Absolute 0.39 #; Lymphocytes # 0.3 10*3/uL (1.4-4.0); Lymphocytes % 4.4 % (21.2-54.2); Mean Corpuscular HGB Conc 33.8 GM/DL (32-36); Mean Corpuscular Volume 107.2 FL (87-102); Mean Platelet Volume 11.2 FL (9.6-12.0); Monocytes # 0.2 10*3/uL (0.11-0.8); Monocytes % 2.9 % (1.7-12.7); NRBC # 0.03 10*3/uL; Neutrophils % 85.1 % (38.7-73.9); Platelet Count 60 T/CUMM (130-400); Red Blood Count 2.07 MC/CUMM (3.8-5.5); Red Cell Distribution Width 16.1 % (9.3-17.3); White Blood Count 5.9 T/CUMM (4-12)
[2021-07-28 13:40] LABS: Anisocytosis 1+; Band Neutrophils 3 % (0-10); Lymphocytes 2 % (20-55); Platelet Estimate Decreased; Total Cells Counted 100
[2021-07-28 13:41] LABS: Macrocytosis 1+
[2021-07-28] MEDS ORDERED: HEPARIN 10,000 UNIT/10 ML VIAL IV SCH (17:30)
[2021-07-29] MEDS: INSULIN LISPRO 100 UNIT/ML SUBCUT SCH ×5 (00:38→23:42)
[2021-07-29] MEDS: ALBUMIN 25% 25 GM/100 ML VIAL IV SCH (01:17)
[2021-07-29] MEDS: CEFEPIME 1,000 MG in SODIUM CHLORIDE 0.9% 100 ML IV SCH ×3 (04:12→19:51)
[2021-07-29 05:08] LABS: Arterial Base Excess iSTAT 8 MMOL/L (-2.5-2.5); Arterial Bicarbonate iSTAT 32.3 MMOL/L (20-26); Arterial O2 Saturation iSTAT 99 % (95-100); Arterial PCO2 iSTAT 41 MM HG (35-48); Arterial PO2 iSTAT 147 MM HG (80-95); Arterial Total CO2 iSTAT 34 MMO/L (23-27)
[2021-07-29 05:30] LABS: Basophils % 0.4 % (0.0-0.8); Eosinophils # 0.1 10*3/uL (0.0-0.87); Eosinophils % 1.3 % (0.00-10.9); Hematocrit 21.5 VOL% (42.0-52.0); Hemoglobin 7.6 GM/DL (14.0-18.0); Immature Granulocytes % 7.8 %; Immature Granulocytes Absolute 0.66 #; Lymphocytes # 0.6 10*3/uL (1.4-4.0); Lymphocytes % 7.4 % (21.2-54.2); Mean Corpuscular HGB Conc 35.3 GM/DL (32-36); Mean Corpuscular Volume 102.9 FL (87-102); Mean Platelet Volume 11.8 FL (9.6-12.0); Monocytes # 0.1 10*3/uL (0.11-0.8); Monocytes % 1.2 % (1.7-12.7); NRBC # 0.02 10*3/uL; Neutrophils % 81.9 % (38.7-73.9); Red Blood Count 2.09 MC/CUMM (3.8-5.5); Red Cell Distribution Width 16.6 % (9.3-17.3); White Blood Count 8.4 T/CUMM (4-12)
[2021-07-29 05:35] LABS: Platelet Count 39 T/CUMM (130-400)
[2021-07-29 05:48] LABS: Eosinophils 4 % (0-10); Lymphocytes 3 % (20-55); Platelet Estimate Decreased; Total Cells Counted 100
[2021-07-29 05:49] LABS: Macrocytosis Slight
[2021-07-29 06:01] LABS: Albumin 2.7 G/DL (3.4-5.0); Calcium 8.3 MG/DL (8.5-10.1); Osmolality,Calculated 296.1 MOS/KG (273-304); Potassium 3.3 MMOL/L (3.5-5.1); Total Protein 4.8 G/DL (6.4-8.2)
[2021-07-29 06:02] LABS: Bilirubin,Total 19.6 MG/DL (0.20-1.00)
[2021-07-29] MEDS: methylPREDNISolone SOD SUC 40 MG/1 ML VIAL IV SCH (08:22)
[2021-07-29] MEDS: LACTULOSE 20 GM/30 ML UDCUP PER TUBE SCH ×3 (08:22→20:33)
[2021-07-29] MEDS: DEXMEDETOMIDINE 400 MCG in SODIUM CHLORIDE 0.9% 96 ML IV PRN ×2 (08:22→16:30)
[2021-07-29] MEDS: MULTIVITAMIN (CENTRUM) TABLET PO SCH (08:22)
[2021-07-29] MEDS: FOLIC ACID 1 MG TABLET PO SCH (08:22)
[2021-07-29] MEDS: NICOTINE 21 MG/24 HR PATCH TRANSDERM SCH (08:24)
[2021-07-29] MEDS ORDERED: ALBUMIN 25% 12.5 GM/50 ML VIAL IV PRN (09:18)
[2021-07-29] MEDS ORDERED: NOREPINEPHRINE 4 MG/4 ML VIAL IV ONE (09:46)
[2021-07-29] MEDS: NOREPINEPHRINE 8 MG in SODIUM CHLORIDE 0.9% 242 ML IV PRN (09:59)
[2021-07-29] MEDS: SODIUM CHLORIDE 0.45% 1,000 ML IV SCH (10:37)
[2021-07-29] MEDS: LACTATED RINGERS 1,000 ML IV SCH (13:52)
[2021-07-30] MEDS: DEXMEDETOMIDINE 400 MCG in SODIUM CHLORIDE 0.9% 96 ML IV PRN ×3 (01:20→19:18)
[2021-07-30] MEDS: CEFEPIME 1,000 MG in SODIUM CHLORIDE 0.9% 100 ML IV SCH ×4 (02:08→20:03)
[2021-07-30 02:38] LABS: Arterial Base Excess iSTAT 6 MMOL/L (-2.5-2.5); Arterial Bicarbonate iSTAT 30.3 MMOL/L (20-26); Arterial O2 Saturation iSTAT 100 % (95-100); Arterial PCO2 iSTAT 41 MM HG (35-48); Arterial PO2 iSTAT 181 MM HG (80-95); Arterial Total CO2 iSTAT 31 MMO/L (23-27); Arterial pH iSTAT 7.472 (7.35-7.45)
[2021-07-30 04:57] LABS: Basophils % 0.4 % (0.0-0.8); Eosinophils # 0.1 10*3/uL (0.0-0.87); Eosinophils % 1.2 % (0.00-10.9); Hematocrit 21.7 VOL% (42.0-52.0); Hemoglobin 7.3 GM/DL (14.0-18.0); Immature Granulocytes % 9.1 %; Immature Granulocytes Absolute 0.89 #; Lymphocytes # 0.8 10*3/uL (1.4-4.0); Lymphocytes % 8.2 % (21.2-54.2); Mean Corpuscular HGB Conc 33.6 GM/DL (32-36); Mean Corpuscular Volume 107.4 FL (87-102); Mean Platelet Volume 12.4 FL (9.6-12.0); Monocytes # 0.1 10*3/uL (0.11-0.8); Monocytes % 1.2 % (1.7-12.7); NRBC # 0.03 10*3/uL; Neutrophils % 79.9 % (38.7-73.9); Red Blood Count 2.02 MC/CUMM (3.8-5.5); Red Cell Distribution Width 16.8 % (9.3-17.3); White Blood Count 9.8 T/CUMM (4-12)
[2021-07-30 04:58] LABS: Platelet Count 32 T/CUMM (130-400)
[2021-07-30 05:16] LABS: Eosinophils 3 % (0-10); Lymphocytes 9 % (20-55)
[2021-07-30 05:17] LABS: Macrocytosis Slight; Platelet Estimate Decreased; Total Cells Counted 100
[2021-07-30 05:30] LABS: Albumin 2.2 G/DL (3.4-5.0); Calcium 7.9 MG/DL (8.5-10.1); Osmolality,Calculated 297.1 MOS/KG (273-304); Potassium 3.5 MMOL/L (3.5-5.1); Total Protein 4.7 G/DL (6.4-8.2)
[2021-07-30 05:31] LABS: Bilirubin,Total 18.3 MG/DL (0.20-1.00)
[2021-07-30] MEDS: INSULIN LISPRO 100 UNIT/ML SUBCUT SCH ×4 (06:45→23:11)
[2021-07-30] MEDS ORDERED: ACETAMINOPHEN 650 MG SUPP RECTAL PRN (08:28)
[2021-07-30] MEDS: LACTATED RINGERS 1,000 ML IV SCH (08:58)
[2021-07-30] MEDS ORDERED: MIDAZOLAM 2 MG/2 ML VIAL IV ONE (09:00)
[2021-07-30] MEDS ORDERED: MIDAZOLAM 2 MG/2 ML VIAL ONE (09:00)
[2021-07-30] MEDS: methylPREDNISolone SOD SUC 40 MG/1 ML VIAL IV SCH (09:40)
[2021-07-30] MEDS: FOLIC ACID INJ 1 MG in SYRINGE 1 EACH IV SCH (09:40)
[2021-07-30] MEDS: NICOTINE 21 MG/24 HR PATCH TRANSDERM SCH (09:41)
[2021-07-30] MEDS: LACTULOSE 20 GM/30 ML UDCUP RECTAL SCH ×3 (09:41→20:04)
[2021-07-30] MEDS: NOREPINEPHRINE 8 MG in SODIUM CHLORIDE 0.9% 242 ML IV PRN (20:33)
[2021-07-31] MEDS: CEFEPIME 1,000 MG in SODIUM CHLORIDE 0.9% 100 ML IV SCH ×4 (02:10→20:21)
[2021-07-31] MEDS: DEXMEDETOMIDINE 400 MCG in SODIUM CHLORIDE 0.9% 96 ML IV PRN ×3 (03:26→23:04)
[2021-07-31 04:07] LABS: Basophils # 0.1 10*3/uL (0.0-0.2); Basophils % 0.7 % (0.0-0.8); Eosinophils # 0.1 10*3/uL (0.0-0.87); Eosinophils % 0.9 % (0.00-10.9); Hematocrit 21.8 VOL% (42.0-52.0); Hemoglobin 7.3 GM/DL (14.0-18.0); Immature Granulocytes % 14.9 %; Lymphocytes % 8.2 % (21.2-54.2); Mean Corpuscular HGB Conc 33.5 GM/DL (32-36); Mean Corpuscular Volume 107.9 FL (87-102); Mean Platelet Volume 12.4 FL (9.6-12.0); Monocytes # 0.7 10*3/uL (0.11-0.8); Monocytes % 5.5 % (1.7-12.7); NRBC # 0.04 10*3/uL; Neutrophils % 69.8 % (38.7-73.9); Platelet Count 44 T/CUMM (130-400); Red Blood Count 2.02 MC/CUMM (3.8-5.5); Red Cell Distribution Width 16.7 % (9.3-17.3); White Blood Count 12.1 T/CUMM (4-12)
[2021-07-31 04:19] LABS: ABG Base Excess 3.6 MMOL/L (-2.5-2.5); ABG HCO3 27.7 MMOL/L (20-26); ABG Oxygen Saturation 99.7 % (95-100); ABG PCO2 39.7 MM HG (35-48); ABG PH 7.453 (7.35-7.45)
[2021-07-31 04:20] LABS: Albumin 2.1 G/DL (3.4-5.0); Calcium 8.1 MG/DL (8.5-10.1); Osmolality,Calculated 303.8 MOS/KG (273-304); Potassium 3.3 MMOL/L (3.5-5.1); Total Protein 5.1 G/DL (6.4-8.2)
[2021-07-31 04:22] LABS: Bilirubin,Total 18.3 MG/DL (0.20-1.00)
[2021-07-31 04:36] LABS: Lymphocytes 10 % (20-55); Platelet Estimate Decreased
[2021-07-31 04:37] LABS: Macrocytosis 1+; Total Cells Counted 100
[2021-07-31] MEDS: INSULIN LISPRO 100 UNIT/ML SUBCUT SCH ×3 (05:20→18:45)
[2021-07-31] MEDS: LACTATED RINGERS 1,000 ML IV SCH (05:29)
[2021-07-31] MEDS: methylPREDNISolone SOD SUC 40 MG/1 ML VIAL IV SCH (08:50)
[2021-07-31] MEDS: LACTULOSE 20 GM/30 ML UDCUP RECTAL SCH ×2 (08:50→20:21)
[2021-07-31] MEDS: NICOTINE 21 MG/24 HR PATCH TRANSDERM SCH (08:51)
[2021-07-31] MEDS: FOLIC ACID INJ 1 MG in SYRINGE 1 EACH IV SCH (09:07)
[2021-07-31 13:02] LABS: INR 1.1; PT Patient Result 12.4 SECS (10.5-12.0)
[2021-07-31] MEDS: SCOPOLAMINE 1.5 MG PATCH TRANSDERM SCH (14:15)
[2021-07-31] MEDS: POTASSIUM CHLORIDE RIDER 20 MEQ/100 ML PREMIX IV SCH ×2 (14:15→16:26)
[2021-07-31] MEDS ORDERED: AMINO ACIDS/DEXT/LYTES 5-20% 2,000 ML IV SCH (17:00)
[2021-07-31] MEDS ORDERED: MIDAZOLAM 2 MG/2 ML VIAL IV ONE (17:40)
[2021-07-31] MEDS ORDERED: MIDAZOLAM 2 MG/2 ML VIAL ONE (17:41)
[2021-08-01] MEDS: INSULIN LISPRO 100 UNIT/ML SUBCUT SCH ×4 (00:07→18:13)
[2021-08-01] MEDS: CEFEPIME 1,000 MG in SODIUM CHLORIDE 0.9% 100 ML IV SCH ×4 (01:16→20:11)
[2021-08-01] MEDS: LACTATED RINGERS 1,000 ML IV SCH (03:14)
[2021-08-01 03:22] LABS: Arterial Base Excess iSTAT 7 MMOL/L (-2.5-2.5); Arterial Bicarbonate iSTAT 30.4 MMOL/L (20-26); Arterial O2 Saturation iSTAT 98 % (95-100); Arterial PCO2 iSTAT 37 MM HG (35-48); Arterial PO2 iSTAT 96 MM HG (80-95); Arterial Total CO2 iSTAT 32 MMO/L (23-27); Arterial pH iSTAT 7.518 (7.35-7.45)
[2021-08-01 04:07] LABS: Basophils # 0.1 10*3/uL (0.0-0.2); Basophils % 0.3 % (0.0-0.8); Eosinophils # 0.2 10*3/uL (0.0-0.87); Hematocrit 20.2 VOL% (42.0-52.0); Hemoglobin 6.7 GM/DL (14.0-18.0); Immature Granulocytes % 16.9 %; Immature Granulocytes Absolute 3.06 #; Lymphocytes # 1.1 10*3/uL (1.4-4.0); Lymphocytes % 6.2 % (21.2-54.2); Mean Corpuscular HGB Conc 33.2 GM/DL (32-36); Mean Corpuscular Volume 106.9 FL (87-102); Mean Platelet Volume 12.9 FL (9.6-12.0); Monocytes # 2.1 10*3/uL (0.11-0.8); Monocytes % 11.5 % (1.7-12.7); NRBC # 0.12 10*3/uL; Neutrophils % 64.1 % (38.7-73.9); Platelet Count 55 T/CUMM (130-400); Red Blood Count 1.89 MC/CUMM (3.8-5.5); Red Cell Distribution Width 16.8 % (9.3-17.3); White Blood Count 18.1 T/CUMM (4-12)
[2021-08-01 04:15] LABS: INR 1.1; PT Patient Result 12.4 SECS (10.5-12.0); Partial Thromboplastin Time 39.3 SECS (23.7-32.9)
[2021-08-01 04:22] LABS: Albumin 1.9 G/DL (3.4-5.0); Osmolality,Calculated 314.1 MOS/KG (273-304); Total Protein 5.1 G/DL (6.4-8.2)
[2021-08-01 04:23] LABS: Bilirubin,Total 17.6 MG/DL (0.20-1.00)
[2021-08-01 04:28] LABS: Band Neutrophils 3 % (0-10); Eosinophils 2 % (0-10); Lymphocytes 10 % (20-55); Nucleated Red Blood Cells 1 (0-5); Platelet Estimate Decreased; Total Cells Counted 100
[2021-08-01 04:32] LABS: Macrocytosis Slight
[2021-08-01] MEDS ORDERED: SODIUM CHLORIDE 0.9% 1,000 ML IV PRN ×3 (04:55→11:41)
[2021-08-01] MEDS: MORPHINE 2 MG/1 ML SYRINGE IV PRN ×2 (05:10→19:17)
[2021-08-01] MEDS: DEXMEDETOMIDINE 400 MCG in SODIUM CHLORIDE 0.9% 96 ML IV PRN ×2 (05:54→16:36)
[2021-08-01] MEDS ORDERED: POTASSIUM CHLORIDE 20 MEQ TABLET PO SCH (09:00)
[2021-08-01] MEDS: FOLIC ACID INJ 1 MG in SYRINGE 1 EACH IV SCH (09:14)
[2021-08-01] MEDS: NICOTINE 14 MG/24 HR PATCH TRANSDERM SCH (09:14)
[2021-08-01] MEDS: methylPREDNISolone SOD SUC 40 MG/1 ML VIAL IV SCH (09:14)
[2021-08-01] MEDS: LACTULOSE 20 GM/30 ML UDCUP RECTAL SCH ×2 (09:15→20:11)
[2021-08-01] MEDS ORDERED: INSULIN REGULAR IV SCH (17:00)
[2021-08-01] MEDS ORDERED: POTASSIUM CHLORIDE IV SCH (17:00)
[2021-08-01] MEDS ORDERED: [UNRECOGNIZED DRUG - OTHER] IV SCH (17:00)
[2021-08-01] MEDS ORDERED: DEXTROSE 10% 1,000 ML IV PRN (17:00)
[2021-08-01] MEDS ORDERED: MULTIVITAMIN IV SCH (17:00)
[2021-08-02] MEDS: INSULIN LISPRO 100 UNIT/ML SUBCUT SCH ×4 (00:22→18:50)
[2021-08-02] MEDS: DEXMEDETOMIDINE 400 MCG in SODIUM CHLORIDE 0.9% 96 ML IV PRN ×3 (00:40→23:15)
[2021-08-02] MEDS: CEFEPIME 1,000 MG in SODIUM CHLORIDE 0.9% 100 ML IV SCH ×4 (01:01→19:40)
[2021-08-02] MEDS: MORPHINE 2 MG/1 ML SYRINGE IV PRN ×3 (01:07→21:22)
[2021-08-02] MEDS: LACTATED RINGERS 1,000 ML IV SCH ×3 (01:08→23:15)
[2021-08-02 04:47] LABS: ABG Base Excess 5.8 MMOL/L (-2.5-2.5); ABG HCO3 29.7 MMOL/L (20-26); ABG Oxygen Saturation 98.9 % (95-100); ABG PH 7.448 (7.35-7.45); ABG TCO2 28.2 MMOL/L (23-27)
[2021-08-02 05:05] LABS: Albumin 1.6 G/DL (3.4-5.0); Calcium 7.6 MG/DL (8.5-10.1); Osmolality,Calculated 305.1 MOS/KG (273-304); Potassium 3.2 MMOL/L (3.5-5.1)
[2021-08-02 05:06] LABS: Bilirubin,Total 16.3 MG/DL (0.20-1.00)
[2021-08-02 05:07] LABS: Phosphorous 1.3 MG/DL (2.5-4.9)
[2021-08-02 05:19] LABS: Basophils % 0.1 % (0.0-0.8); Eosinophils # 0.2 10*3/uL (0.0-0.87); Eosinophils % 0.5 % (0.00-10.9); Hematocrit 24.6 VOL% (42.0-52.0); Hemoglobin 8.5 GM/DL (14.0-18.0); Immature Granulocytes Absolute 4.65 #; Lymphocytes # 1.5 10*3/uL (1.4-4.0); Lymphocytes % 5.5 % (21.2-54.2); Mean Corpuscular HGB Conc 34.6 GM/DL (32-36); Mean Corpuscular Volume 101.2 FL (87-102); Mean Platelet Volume 12.9 FL (9.6-12.0); Monocytes % 7.3 % (1.7-12.7); NRBC # 0.18 10*3/uL; Neutrophils % 69.6 % (38.7-73.9); Platelet Count 79 T/CUMM (130-400); Red Blood Count 2.43 MC/CUMM (3.8-5.5); Red Cell Distribution Width 19.1 % (9.3-17.3); White Blood Count 27.3 T/CUMM (4-12)
[2021-08-02 05:39] LABS: Band Neutrophils 3 % (0-10); Lymphocytes 12 % (20-55); Metamyelocytes 3 %; Myelocytes 4 %; Nucleated Red Blood Cells 2 (0-5); Total Cells Counted 100
[2021-08-02 05:40] LABS: Anisocytosis 1+; Macrocytosis 1+; Polychromasia Slight; Target Cells Few
[2021-08-02 05:41] LABS: Platelet Estimate Decreased
[2021-08-02] MEDS: LACTULOSE 20 GM/30 ML UDCUP RECTAL SCH ×2 (08:36→20:02)
[2021-08-02] MEDS: FOLIC ACID INJ 1 MG in SYRINGE 1 EACH IV SCH (08:36)
[2021-08-02] MEDS: NICOTINE 14 MG/24 HR PATCH TRANSDERM SCH (08:36)
[2021-08-02] MEDS: methylPREDNISolone SOD SUC 40 MG/1 ML VIAL IV SCH (08:37)
[2021-08-02] MEDS ORDERED: POTASSIUM PHOSPHATE 40 MMOL in SODIUM CHLORIDE 0.9% 250 ML IV ONE (10:00)
[2021-08-02] MEDS: NOREPINEPHRINE 8 MG in SODIUM CHLORIDE 0.9% 242 ML IV PRN (14:27)
[2021-08-02] MEDS ORDERED: POTASSIUM CHLORIDE IV SCH (17:00)
[2021-08-02] MEDS ORDERED: MULTIVITAMIN IV SCH (17:00)
[2021-08-02] MEDS ORDERED: INSULIN REGULAR IV SCH (17:00)
[2021-08-02] MEDS ORDERED: [UNRECOGNIZED DRUG - OTHER] IV SCH (17:00)
[2021-08-03] MEDS: INSULIN LISPRO 100 UNIT/ML SUBCUT SCH ×4 (00:22→17:41)
[2021-08-03] MEDS: CEFEPIME 1,000 MG in SODIUM CHLORIDE 0.9% 100 ML IV SCH ×3 (01:03→13:40)
[2021-08-03 02:04] LABS: Hyaline Casts,Urine 5 /LPF (0-3); Mucus,Urine Occasional /LPF (Occasional); RBC,Urine 9 /HPF (0-4); Squamous Epithelial Cell,Urine Occasional /HPF (0-10)
[2021-08-03 02:05] LABS: Glucose,Urine (UA) 100 mg/dL (Negative); Ketones,Urine 15 mg/dL (Negative); Nitrite,Urine Negative (Negative); Protein,Urine 100 mg/dL (Negative); Urine Appearance Slightly Cloudy (Clear); Urine Color Dark Yellow (Yellow); Urine Specific Gravity 1.015 (1.001-1.035); Urine pH 5.5 (4.5-8.0)
[2021-08-03 02:06] LABS: Bilirubin,Urine Large mg/dL (Negative); Blood, Urine Moderate mg/dL (Negative); Urine Urobilinogen 0.2 eU/dL (<2.0)
[2021-08-03] MEDS: MORPHINE 2 MG/1 ML SYRINGE IV PRN ×2 (03:34→20:02)
[2021-08-03 03:53] LABS: Arterial Base Excess iSTAT 1 MMOL/L (-2.5-2.5); Arterial Bicarbonate iSTAT 27.5 MMOL/L (20-26); Arterial O2 Saturation iSTAT 99 % (95-100); Arterial PCO2 iSTAT 50 MM HG (35-48); Arterial PO2 iSTAT 123 MM HG (80-95); Arterial Total CO2 iSTAT 29 MMO/L (23-27); Arterial pH iSTAT 7.344 (7.35-7.45)
[2021-08-03 04:02] LABS: Basophils # 0.1 10*3/uL (0.0-0.2); Basophils % 0.1 % (0.0-0.8); Eosinophils # 0.1 10*3/uL (0.0-0.87); Eosinophils % 0.1 % (0.00-10.9); Hematocrit 22.9 VOL% (42.0-52.0); Hemoglobin 7.6 GM/DL (14.0-18.0); Immature Granulocytes % 14.3 %; Immature Granulocytes Absolute 6.51 #; Lymphocytes # 2.1 10*3/uL (1.4-4.0); Lymphocytes % 4.7 % (21.2-54.2); Mean Corpuscular HGB Conc 33.2 GM/DL (32-36); Mean Corpuscular Volume 104.6 FL (87-102); Mean Platelet Volume 12.1 FL (9.6-12.0); Monocytes # 3.5 10*3/uL (0.11-0.8); Monocytes % 7.6 % (1.7-12.7); NRBC # 0.25 10*3/uL; Neutrophils % 73.2 % (38.7-73.9); Platelet Count 137 T/CUMM (130-400); Red Blood Count 2.19 MC/CUMM (3.8-5.5); Red Cell Distribution Width 20.2 % (9.3-17.3)
[2021-08-03 04:05] LABS: White Blood Count 45.6 T/CUMM (4-12)
[2021-08-03 04:19] LABS: Albumin 1.6 G/DL (3.4-5.0); Calcium 7.8 MG/DL (8.5-10.1); Osmolality,Calculated 312.3 MOS/KG (273-304); Potassium 3.6 MMOL/L (3.5-5.1); Total Protein 5.6 G/DL (6.4-8.2)
[2021-08-03 04:24] LABS: INR 1.1; PT Patient Result 11.9 SECS (10.5-12.0)
[2021-08-03 04:26] LABS: Band Neutrophils 3 % (0-10); Lymphocytes 4 % (20-55); Metamyelocytes 2 %; Myelocytes 4 %; Platelet Estimate Normal; Total Cells Counted 100
[2021-08-03 04:27] LABS: Macrocytosis Slight
[2021-08-03] MEDS: SCOPOLAMINE 1.5 MG PATCH TRANSDERM SCH (08:41)
[2021-08-03] MEDS: NICOTINE 14 MG/24 HR PATCH TRANSDERM SCH (08:41)
[2021-08-03] MEDS: LACTULOSE 20 GM/30 ML UDCUP RECTAL SCH ×2 (08:42→20:02)
[2021-08-03] MEDS: methylPREDNISolone SOD SUC 40 MG/1 ML VIAL IV SCH (08:43)
[2021-08-03] MEDS: FLUCONAZOLE INJ 400 MG/200 ML PREMIX IV SCH (08:51)
[2021-08-03] MEDS: FOLIC ACID INJ 1 MG in SYRINGE 1 EACH IV SCH (09:13)
[2021-08-03] MEDS: NOREPINEPHRINE 8 MG in SODIUM CHLORIDE 0.9% 242 ML IV PRN ×2 (09:54→20:39)
[2021-08-03] MEDS: DEXMEDETOMIDINE 400 MCG in SODIUM CHLORIDE 0.9% 96 ML IV PRN ×2 (10:15→19:22)
[2021-08-03] MEDS: LACTATED RINGERS 1,000 ML IV SCH ×2 (20:08)
[2021-08-04] MEDS: INSULIN LISPRO 100 UNIT/ML SUBCUT SCH ×5 (00:09→23:46)
[2021-08-04] MEDS: CEFEPIME 1,000 MG in SODIUM CHLORIDE 0.9% 100 ML IV SCH (02:00)
[2021-08-04 03:51] LABS: Arterial Base Excess iSTAT 1 MMOL/L (-2.5-2.5); Arterial Bicarbonate iSTAT 26.1 MMOL/L (20-26); Arterial O2 Saturation iSTAT 89 % (95-100); Arterial PCO2 iSTAT 42 MM HG (35-48); Arterial PO2 iSTAT 56 MM HG (80-95); Arterial Total CO2 iSTAT 27 MMO/L (23-27); Arterial pH iSTAT 7.404 (7.35-7.45)
[2021-08-04 03:52] LABS: Basophils # 0.1 10*3/uL (0.0-0.2); Basophils % 0.1 % (0.0-0.8); Eosinophils # 0.1 10*3/uL (0.0-0.87); Eosinophils % 0.1 % (0.00-10.9); Hematocrit 18.5 VOL% (42.0-52.0); Immature Granulocytes % 10.5 %; Immature Granulocytes Absolute 5.67 #; Lymphocytes # 1.6 10*3/uL (1.4-4.0); Mean Corpuscular HGB Conc 34.1 GM/DL (32-36); Mean Corpuscular Volume 105.7 FL (87-102); Mean Platelet Volume 12.3 FL (9.6-12.0); Monocytes # 3.4 10*3/uL (0.11-0.8); Monocytes % 6.4 % (1.7-12.7); NRBC # 0.22 10*3/uL; Neutrophils % 79.9 % (38.7-73.9); Platelet Count 285 T/CUMM (130-400); Red Blood Count 1.75 MC/CUMM (3.8-5.5)
[2021-08-04 03:54] LABS: Hemoglobin 6.3 GM/DL (14.0-18.0); White Blood Count 53.8 T/CUMM (4-12)
[2021-08-04] MEDS: DEXMEDETOMIDINE 400 MCG in SODIUM CHLORIDE 0.9% 96 ML IV PRN ×3 (04:07→23:26)
[2021-08-04 04:12] LABS: Band Neutrophils 6 % (0-10); Lymphocytes 5 % (20-55); Platelet Estimate Adequate; Total Cells Counted 100
[2021-08-04 04:16] LABS: Arterial Base Excess iSTAT 2 MMOL/L (-2.5-2.5); Arterial O2 Saturation iSTAT 99 % (95-100); Arterial PCO2 iSTAT 49 MM HG (35-48); Arterial PO2 iSTAT 144 MM HG (80-95); Arterial Total CO2 iSTAT 29 MMO/L (23-27); Arterial pH iSTAT 7.362 (7.35-7.45)
[2021-08-04 04:26] LABS: Albumin 1.5 G/DL (3.4-5.0); Calcium 7.4 MG/DL (8.5-10.1); Osmolality,Calculated 304.8 MOS/KG (273-304); Potassium 3.7 MMOL/L (3.5-5.1); Total Protein 5.2 G/DL (6.4-8.2)
[2021-08-04 04:27] LABS: Bilirubin,Total 23.9 MG/DL (0.20-1.00)
[2021-08-04] MEDS: NOREPINEPHRINE 8 MG in SODIUM CHLORIDE 0.9% 242 ML IV PRN ×2 (07:22→18:01)
[2021-08-04] MEDS: LACTULOSE 20 GM/30 ML UDCUP RECTAL SCH ×2 (08:47→20:22)
[2021-08-04] MEDS: NICOTINE 14 MG/24 HR PATCH TRANSDERM SCH (08:47)
[2021-08-04] MEDS: methylPREDNISolone SOD SUC 40 MG/1 ML VIAL IV SCH (08:49)
[2021-08-04] MEDS: FOLIC ACID INJ 1 MG in SYRINGE 1 EACH IV SCH (08:57)
[2021-08-05] MEDS: CEFEPIME 1,000 MG in SODIUM CHLORIDE 0.9% 100 ML IV SCH (01:04)
[2021-08-05 04:00] LABS: Basophils # 0.1 10*3/uL (0.0-0.2); Basophils % 0.1 % (0.0-0.8); Eosinophils # 0.2 10*3/uL (0.0-0.87); Eosinophils % 0.3 % (0.00-10.9); Immature Granulocytes % 11.6 %; Immature Granulocytes Absolute 7.19 #; Lymphocytes # 1.8 10*3/uL (1.4-4.0); Mean Corpuscular HGB Conc 35.8 GM/DL (32-36); Mean Corpuscular Volume 98.8 FL (87-102); Monocytes # 4.8 10*3/uL (0.11-0.8); Monocytes % 7.7 % (1.7-12.7); NRBC # 0.19 10*3/uL; Neutrophils % 77.3 % (38.7-73.9); Platelet Count 495 T/CUMM (130-400); Red Blood Count 1.61 MC/CUMM (3.8-5.5); Red Cell Distribution Width 20.2 % (9.3-17.3)
[2021-08-05 04:05] LABS: Hemoglobin 5.7 GM/DL (14.0-18.0); White Blood Count 61.9 T/CUMM (4-12)
[2021-08-05 04:06] LABS: Hematocrit 15.9 VOL% (42.0-52.0)
[2021-08-05 04:19] LABS: Band Neutrophils 5 % (0-10); Eosinophils 1 % (0-10); Lymphocytes 6 % (20-55); Metamyelocytes 2 %; Myelocytes 1 %; Nucleated Red Blood Cells 1 (0-5); Total Cells Counted 100
[2021-08-05 04:20] LABS: Macrocytosis 1+
[2021-08-05 04:21] LABS: Polychromasia Slight
[2021-08-05 04:23] LABS: Hypochromia Slight
[2021-08-05 04:29] LABS: Arterial Base Excess iSTAT 1 MMOL/L (-2.5-2.5); Arterial O2 Saturation iSTAT 99 % (95-100); Arterial PCO2 iSTAT 43 MM HG (35-48); Arterial PO2 iSTAT 151 MM HG (80-95); Arterial Total CO2 iSTAT 27 MMO/L (23-27)
[2021-08-05 04:34] LABS: Albumin 1.5 G/DL (3.4-5.0); Calcium 7.8 MG/DL (8.5-10.1); Osmolality,Calculated 289.7 MOS/KG (273-304); Potassium 3.9 MMOL/L (3.5-5.1); Total Protein 5.4 G/DL (6.4-8.2)
[2021-08-05 04:39] LABS: Bilirubin,Total 25.8 MG/DL (0.20-1.00)
[2021-08-05] MEDS: NOREPINEPHRINE 8 MG in SODIUM CHLORIDE 0.9% 242 ML IV PRN ×2 (05:15→18:33)
[2021-08-05] MEDS: INSULIN LISPRO 100 UNIT/ML SUBCUT SCH ×3 (05:16→18:55)
[2021-08-05] MEDS: NICOTINE 14 MG/24 HR PATCH TRANSDERM SCH (08:25)
[2021-08-05] MEDS: FLUCONAZOLE INJ 400 MG/200 ML PREMIX IV SCH (08:25)
[2021-08-05] MEDS: methylPREDNISolone SOD SUC 40 MG/1 ML VIAL IV SCH (08:26)
[2021-08-05] MEDS: LACTULOSE 20 GM/30 ML UDCUP RECTAL SCH ×2 (08:27→21:40)
[2021-08-05] MEDS: FOLIC ACID INJ 1 MG in SYRINGE 1 EACH IV SCH (08:28)
[2021-08-05] MEDS ORDERED: MIDAZOLAM 10 MG/2 ML VIAL ONE (09:22)
[2021-08-05] MEDS ORDERED: VECURONIUM 10 MG VIAL IV ONE ×2 (09:30→09:31)
[2021-08-05] MEDS ORDERED: MIDAZOLAM 2 MG/2 ML VIAL IV PRN (10:31)
[2021-08-05] MEDS: MORPHINE 2 MG/1 ML SYRINGE IV PRN (11:32)
[2021-08-06] MEDS: INSULIN LISPRO 100 UNIT/ML SUBCUT SCH ×5 (01:45→23:46)
[2021-08-06] MEDS: CEFEPIME 1,000 MG in SODIUM CHLORIDE 0.9% 100 ML IV SCH (01:53)
[2021-08-06 04:18] LABS: Arterial Base Excess iSTAT -1 MMOL/L (-2.5-2.5); Arterial Bicarbonate iSTAT 24.1 MMOL/L (20-26); Arterial O2 Saturation iSTAT 99 % (95-100); Arterial PCO2 iSTAT 41 MM HG (35-48); Arterial PO2 iSTAT 135 MM HG (80-95); Arterial Total CO2 iSTAT 25 MMO/L (23-27); Arterial pH iSTAT 7.379 (7.35-7.45)
[2021-08-06 04:50] LABS: Basophils # 0.1 10*3/uL (0.0-0.2); Basophils % 0.1 % (0.0-0.8); Eosinophils # 0.1 10*3/uL (0.0-0.87); Eosinophils % 0.3 % (0.00-10.9); Hematocrit 19.5 VOL% (42.0-52.0); Hemoglobin 6.6 GM/DL (14.0-18.0); Immature Granulocytes % 10.3 %; Immature Granulocytes Absolute 5.08 #; Lymphocytes # 1.2 10*3/uL (1.4-4.0); Lymphocytes % 2.4 % (21.2-54.2); Mean Corpuscular HGB Conc 33.8 GM/DL (32-36); Mean Corpuscular Volume 94.2 FL (87-102); Mean Platelet Volume 11.7 FL (9.6-12.0); Monocytes # 2.4 10*3/uL (0.11-0.8); Monocytes % 4.9 % (1.7-12.7); Platelet Count 508 T/CUMM (130-400); Red Blood Count 2.07 MC/CUMM (3.8-5.5); Red Cell Distribution Width 20.1 % (9.3-17.3)
[2021-08-06 04:52] LABS: White Blood Count 49.2 T/CUMM (4-12)
[2021-08-06 04:59] LABS: Osmolality,Calculated 287.1 MOS/KG (273-304)
[2021-08-06 05:26] LABS: Band Neutrophils 1 % (0-10); Hypochromia Slight; Lymphocytes 4 % (20-55); Macrocytosis Slight; Myelocytes 1 %; Platelet Estimate Increased; Total Cells Counted 100
[2021-08-06 06:56] LABS: Albumin 1.5 G/DL (3.4-5.0); Bilirubin,Direct 26.7 MG/DL (0.0-0.20); Total Protein 5.5 G/DL (6.4-8.2)
[2021-08-06 07:06] LABS: Bilirubin,Indirect 2.6 MG/DL (0.0-1.0); Bilirubin,Total 29.3 MG/DL (0.20-1.00)
[2021-08-06] MEDS: MORPHINE 2 MG/1 ML SYRINGE IV PRN (08:08)
[2021-08-06] MEDS: NICOTINE 14 MG/24 HR PATCH TRANSDERM SCH (08:09)
[2021-08-06] MEDS: LACTULOSE 20 GM/30 ML UDCUP RECTAL SCH ×2 (09:31→21:36)
[2021-08-06] MEDS: methylPREDNISolone SOD SUC 40 MG/1 ML VIAL IV SCH (09:33)
[2021-08-06] MEDS: SCOPOLAMINE 1.5 MG PATCH TRANSDERM SCH (09:33)
[2021-08-06] MEDS: FOLIC ACID INJ 1 MG in SYRINGE 1 EACH IV SCH (09:36)
[2021-08-06] MEDS: DEXMEDETOMIDINE 400 MCG in SODIUM CHLORIDE 0.9% 96 ML IV PRN (15:25)
[2021-08-06] MEDS: MIDAZOLAM 100 MG in SODIUM CHLORIDE 0.9% 80 ML IV PRN (16:07)
[2021-08-07] MEDS: DEXMEDETOMIDINE 400 MCG in SODIUM CHLORIDE 0.9% 96 ML IV PRN ×3 (00:17→16:16)
[2021-08-07] MEDS: CEFEPIME 1,000 MG in SODIUM CHLORIDE 0.9% 100 ML IV SCH (02:10)
[2021-08-07 04:08] LABS: Arterial Base Excess iSTAT -1 MMOL/L (-2.5-2.5); Arterial Bicarbonate iSTAT 24.1 MMOL/L (20-26); Arterial O2 Saturation iSTAT 98 % (95-100); Arterial PCO2 iSTAT 42 MM HG (35-48); Arterial PO2 iSTAT 115 MM HG (80-95); Arterial Total CO2 iSTAT 25 MMO/L (23-27); Arterial pH iSTAT 7.364 (7.35-7.45)
[2021-08-07 04:51] LABS: Basophils # 0.2 10*3/uL (0.0-0.2); Basophils % 0.5 % (0.0-0.8); Eosinophils # 0.2 10*3/uL (0.0-0.87); Eosinophils % 0.7 % (0.00-10.9); Hematocrit 19.9 VOL% (42.0-52.0); Hemoglobin 6.9 GM/DL (14.0-18.0); Immature Granulocytes % 8.8 %; Immature Granulocytes Absolute 3.21 #; Lymphocytes # 1.2 10*3/uL (1.4-4.0); Lymphocytes % 3.3 % (21.2-54.2); Mean Corpuscular HGB Conc 34.7 GM/DL (32-36); Mean Corpuscular Volume 93.4 FL (87-102); Mean Platelet Volume 11.4 FL (9.6-12.0); Monocytes % 5.6 % (1.7-12.7); Neutrophils % 81.1 % (38.7-73.9); Platelet Count 455 T/CUMM (130-400); Red Blood Count 2.13 MC/CUMM (3.8-5.5); White Blood Count 36.5 T/CUMM (4-12)
[2021-08-07 04:59] LABS: Band Neutrophils 3 % (0-10); Eosinophils 1 % (0-10); Lymphocytes 6 % (20-55); Platelet Estimate Adequate; Total Cells Counted 100
[2021-08-07 05:27] LABS: Albumin 1.5 G/DL (3.4-5.0); Calcium 8.2 MG/DL (8.5-10.1); Osmolality,Calculated 293.5 MOS/KG (273-304); Potassium 3.9 MMOL/L (3.5-5.1); Total Protein 5.8 G/DL (6.4-8.2)
[2021-08-07 05:29] LABS: Bilirubin,Total 31.2 MG/DL (0.20-1.00)
[2021-08-07] MEDS: INSULIN LISPRO 100 UNIT/ML SUBCUT SCH ×3 (06:31→18:28)
[2021-08-07] MEDS: MIDAZOLAM 100 MG in SODIUM CHLORIDE 0.9% 80 ML IV PRN (08:46)
[2021-08-07] MEDS: NOREPINEPHRINE 8 MG in SODIUM CHLORIDE 0.9% 242 ML IV PRN (08:46)
[2021-08-07] MEDS ORDERED: NICOTINE 14 MG/24 HR PATCH TRANSDERM PRN (08:47)
[2021-08-07] MEDS: ALBUMIN 25% 12.5 GM/50 ML VIAL IV SCH (09:11)
[2021-08-07] MEDS: MORPHINE 2 MG/1 ML SYRINGE IV PRN (09:13)
[2021-08-07] MEDS: LACTULOSE 20 GM/30 ML UDCUP RECTAL SCH ×2 (09:14→21:22)
[2021-08-07] MEDS: methylPREDNISolone SOD SUC 40 MG/1 ML VIAL IV SCH (09:14)
[2021-08-07] MEDS: FOLIC ACID INJ 1 MG in SYRINGE 1 EACH IV SCH (09:14)
[2021-08-07] MEDS ORDERED: ALBUMIN 25% 12.5 GM/50 ML VIAL IV SCH (21:00)
[2021-08-07] MEDS: QUEtiapine 25 MG TABLET PER TUBE SCH (21:22)
[2021-08-08] MEDS: INSULIN LISPRO 100 UNIT/ML SUBCUT SCH ×5 (01:21→23:57)
[2021-08-08] MEDS: CEFEPIME 1,000 MG in SODIUM CHLORIDE 0.9% 100 ML IV SCH (01:22)
[2021-08-08 03:43] LABS: Arterial Base Excess iSTAT -5 MMOL/L (-2.5-2.5); Arterial Bicarbonate iSTAT 21.1 MMOL/L (20-26); Arterial O2 Saturation iSTAT 96 % (95-100); Arterial PCO2 iSTAT 41 MM HG (35-48); Arterial PO2 iSTAT 87 MM HG (80-95); Arterial Total CO2 iSTAT 22 MMO/L (23-27); Arterial pH iSTAT 7.322 (7.35-7.45)
[2021-08-08 05:29] LABS: Albumin 1.4 G/DL (3.4-5.0); Calcium 8.3 MG/DL (8.5-10.1); Osmolality,Calculated 303.8 MOS/KG (273-304); Total Protein 6.1 G/DL (6.4-8.2)
[2021-08-08 05:30] LABS: Bilirubin,Total 31.9 MG/DL (0.20-1.00)
[2021-08-08 06:26] LABS: Basophils # 0.1 10*3/uL (0.0-0.2); Basophils % 0.3 % (0.0-0.8); Eosinophils % 0.1 % (0.00-10.9); Hematocrit 19.4 VOL% (42.0-52.0); Hemoglobin 6.6 GM/DL (14.0-18.0); Immature Granulocytes % 5.4 %; Immature Granulocytes Absolute 1.74 #; Lymphocytes # 1.1 10*3/uL (1.4-4.0); Lymphocytes % 3.6 % (21.2-54.2); Mean Corpuscular Volume 93.3 FL (87-102); Mean Platelet Volume 11.5 FL (9.6-12.0); Monocytes # 1.5 10*3/uL (0.11-0.8); Monocytes % 4.7 % (1.7-12.7); NRBC # 0.07 10*3/uL; Neutrophils % 85.9 % (38.7-73.9); Platelet Count 463 T/CUMM (130-400); Red Blood Count 2.08 MC/CUMM (3.8-5.5); Red Cell Distribution Width 19.5 % (9.3-17.3); White Blood Count 32.1 T/CUMM (4-12)
[2021-08-08 06:38] LABS: Band Neutrophils 2 % (0-10); Eosinophils 1 % (0-10); Lymphocytes 8 % (20-55); Platelet Estimate Adequate; Total Cells Counted 100
[2021-08-08] MEDS: FLUCONAZOLE INJ 400 MG/200 ML PREMIX IV SCH (08:57)
[2021-08-08] MEDS ORDERED: SODIUM CHLORIDE 0.9% 1,000 ML IV PRN (09:03)
[2021-08-08] MEDS: FOLIC ACID INJ 1 MG in SYRINGE 1 EACH IV SCH (09:32)
[2021-08-08] MEDS: LACTULOSE 20 GM/30 ML UDCUP RECTAL SCH (09:32)
[2021-08-08] MEDS: QUEtiapine 25 MG TABLET PER TUBE SCH ×2 (09:32→21:22)
[2021-08-08] MEDS: ALBUMIN 25% 12.5 GM/50 ML VIAL IV SCH (10:01)
[2021-08-08 11:39] LABS: INR 1.2; PT Patient Result 12.6 SECS (10.5-12.0); Partial Thromboplastin Time 54.4 SECS (23.7-32.9)
[2021-08-08] MEDS: LACTULOSE 20 GM/30 ML UDCUP PO SCH ×3 (13:23→23:57)
[2021-08-08] MEDS: ERTAPENEM 500 MG in SODIUM CHLORIDE 0.9% 100 ML IV SCH (15:29)
[2021-08-08] MEDS ORDERED: LORazepam 1 MG TABLET PO PRN (16:43)
[2021-08-08] MEDS: METHYL SALICYLATE 60 ML BOTTLE TOP PRN (17:06)
[2021-08-09 03:40] LABS: Basophils # 0.2 10*3/uL (0.0-0.2); Basophils % 0.5 % (0.0-0.8); Eosinophils # 0.1 10*3/uL (0.0-0.87); Eosinophils % 0.4 % (0.00-10.9); Hematocrit 23.8 VOL% (42.0-52.0); Immature Granulocytes % 6.5 %; Immature Granulocytes Absolute 2.29 #; Lymphocytes # 1.1 10*3/uL (1.4-4.0); Lymphocytes % 3.1 % (21.2-54.2); Mean Corpuscular HGB Conc 33.6 GM/DL (32-36); Mean Corpuscular Volume 91.9 FL (87-102); Mean Platelet Volume 11.1 FL (9.6-12.0); Monocytes # 1.8 10*3/uL (0.11-0.8); Monocytes % 5.2 % (1.7-12.7); NRBC # 0.09 10*3/uL; Neutrophils % 84.3 % (38.7-73.9); Platelet Count 322 T/CUMM (130-400); Red Blood Count 2.59 MC/CUMM (3.8-5.5); Red Cell Distribution Width 18.4 % (9.3-17.3); White Blood Count 35.1 T/CUMM (4-12)
[2021-08-09 04:04] LABS: Arterial Base Excess iSTAT 0 MMOL/L (-2.5-2.5); Arterial Bicarbonate iSTAT 23.9 MMOL/L (20-26); Arterial O2 Saturation iSTAT 99 % (95-100); Arterial PCO2 iSTAT 37 MM HG (35-48); Arterial PO2 iSTAT 155 MM HG (80-95); Arterial Total CO2 iSTAT 25 MMO/L (23-27); Arterial pH iSTAT 7.416 (7.35-7.45)
[2021-08-09 04:11] LABS: Albumin 1.6 G/DL (3.4-5.0); Calcium 8.2 MG/DL (8.5-10.1); Osmolality,Calculated 296.4 MOS/KG (273-304); Platelet Estimate Adequate; Potassium 3.5 MMOL/L (3.5-5.1); Total Protein 6.3 G/DL (6.4-8.2)
[2021-08-09 04:16] LABS: Bilirubin,Total 31.5 MG/DL (0.20-1.00)
[2021-08-09] MEDS: INSULIN LISPRO 100 UNIT/ML SUBCUT SCH ×4 (06:43→23:14)
[2021-08-09] MEDS: LACTULOSE 20 GM/30 ML UDCUP PO SCH ×3 (06:43→17:00)
[2021-08-09] MEDS: ALBUMIN 25% 12.5 GM/50 ML VIAL IV SCH (08:23)
[2021-08-09] MEDS: METHYL SALICYLATE 60 ML BOTTLE TOP PRN (08:52)
[2021-08-09] MEDS: SCOPOLAMINE 1.5 MG PATCH TRANSDERM SCH (08:53)
[2021-08-09] MEDS: QUEtiapine 25 MG TABLET PER TUBE SCH ×2 (08:53→20:32)
[2021-08-09] MEDS: FOLIC ACID INJ 1 MG in SYRINGE 1 EACH IV SCH (08:54)
[2021-08-09] MEDS: NOREPINEPHRINE 8 MG in SODIUM CHLORIDE 0.9% 242 ML IV PRN (09:51)
[2021-08-09] MEDS ORDERED: PHENYLEPHRINE 0.5% NASAL SPRAY 15 ML BOTTLE BOTH NARES PRN (10:12)
[2021-08-09] MEDS ORDERED: OXYMETAZOLINE 0.05% NASAL SPRAY 15 ML BOTTLE BOTH NARES PRN (10:21)
[2021-08-09] MEDS: FAMOTIDINE 20 MG/2 ML VIAL IV SCH (11:04)
[2021-08-09] MEDS: ERTAPENEM 500 MG in SODIUM CHLORIDE 0.9% 100 ML IV SCH (15:10)
[2021-08-10] MEDS: LACTULOSE 20 GM/30 ML UDCUP PO SCH ×5 (00:07→23:57)
[2021-08-10 04:13] LABS: Arterial Base Excess iSTAT -7 MMOL/L (-2.5-2.5); Arterial Bicarbonate iSTAT 19.6 MMOL/L (20-26); Arterial O2 Saturation iSTAT 99 % (95-100); Arterial PCO2 iSTAT 42 MM HG (35-48); Arterial PO2 iSTAT 173 MM HG (80-95); Arterial Total CO2 iSTAT 21 MMO/L (23-27); Arterial pH iSTAT 7.278 (7.35-7.45)
[2021-08-10 04:46] LABS: Basophils # 0.2 10*3/uL (0.0-0.2); Basophils % 0.6 % (0.0-0.8); Eosinophils # 0.1 10*3/uL (0.0-0.87); Eosinophils % 0.4 % (0.00-10.9); Hemoglobin 7.4 GM/DL (14.0-18.0); Immature Granulocytes % 8.7 %; Immature Granulocytes Absolute 2.57 #; Lymphocytes # 0.8 10*3/uL (1.4-4.0); Lymphocytes % 2.7 % (21.2-54.2); Mean Corpuscular HGB Conc 32.2 GM/DL (32-36); Mean Corpuscular Volume 94.3 FL (87-102); Mean Platelet Volume 11.8 FL (9.6-12.0); Monocytes # 1.6 10*3/uL (0.11-0.8); Monocytes % 5.5 % (1.7-12.7); NRBC # 0.06 10*3/uL; Neutrophils % 82.1 % (38.7-73.9); Platelet Count 244 T/CUMM (130-400); Red Blood Count 2.44 MC/CUMM (3.8-5.5); Red Cell Distribution Width 19.2 % (9.3-17.3); White Blood Count 29.5 T/CUMM (4-12)
[2021-08-10 05:12] LABS: Band Neutrophils 3 % (0-10); Hypochromia Slight; Lymphocytes 6 % (20-55); Total Cells Counted 100
[2021-08-10 05:13] LABS: Anisocytosis 1+; Polychromasia Slight; Target Cells Slight
[2021-08-10 05:14] LABS: Microcytosis 1+
[2021-08-10 05:15] LABS: Platelet Estimate Normal
[2021-08-10 05:17] LABS: Albumin 1.5 G/DL (3.4-5.0); Calcium 8.6 MG/DL (8.5-10.1); Osmolality,Calculated 310.5 MOS/KG (273-304); Potassium 3.5 MMOL/L (3.5-5.1); Total Protein 6.5 G/DL (6.4-8.2)
[2021-08-10 05:19] LABS: Bilirubin,Total 28.8 MG/DL (0.20-1.00)
[2021-08-10] MEDS: INSULIN LISPRO 100 UNIT/ML SUBCUT SCH ×4 (05:56→23:57)
[2021-08-10] MEDS: FLUCONAZOLE INJ 400 MG/200 ML PREMIX IV SCH (07:51)
[2021-08-10] MEDS: ALBUMIN 25% 12.5 GM/50 ML VIAL IV SCH (09:32)
[2021-08-10] MEDS: FOLIC ACID INJ 1 MG in SYRINGE 1 EACH IV SCH (09:32)
[2021-08-10] MEDS: FAMOTIDINE 20 MG/2 ML VIAL IV SCH (09:35)
[2021-08-10] MEDS: QUEtiapine 25 MG TABLET PER TUBE SCH ×2 (09:35→21:12)
[2021-08-10] MEDS: ERTAPENEM 500 MG in SODIUM CHLORIDE 0.9% 100 ML IV SCH (14:43)
[2021-08-10] MEDS: DEXTROSE 10% 250 ML BAG IV PRN (17:27)
[2021-08-11] MEDS: LORazepam 1 MG TABLET NG PRN (03:45)
[2021-08-11 04:39] LABS: ABG Base Excess -1.5 MMOL/L (-2.5-2.5); ABG HCO3 23.1 MMOL/L (20-26); ABG Oxygen Saturation 98.3 % (95-100); ABG PCO2 41.1 MM HG (35-48); ABG PH 7.367 (7.35-7.45); ABG TCO2 22.4 MMOL/L (23-27)
[2021-08-11 04:42] LABS: Basophils # 0.1 10*3/uL (0.0-0.2); Basophils % 0.2 % (0.0-0.8); Eosinophils # 0.4 10*3/uL (0.0-0.87); Eosinophils % 1.5 % (0.00-10.9); Hematocrit 21.2 VOL% (42.0-52.0); Hemoglobin 7.1 GM/DL (14.0-18.0); Immature Granulocytes % 11.8 %; Immature Granulocytes Absolute 3.24 #; Lymphocytes # 1.2 10*3/uL (1.4-4.0); Lymphocytes % 4.2 % (21.2-54.2); Mean Corpuscular HGB Conc 33.5 GM/DL (32-36); Mean Corpuscular Volume 93.4 FL (87-102); Monocytes # 1.9 10*3/uL (0.11-0.8); Monocytes % 6.8 % (1.7-12.7); NRBC # 0.14 10*3/uL; Neutrophils % 75.5 % (38.7-73.9); Platelet Count 234 T/CUMM (130-400); Red Blood Count 2.27 MC/CUMM (3.8-5.5); Red Cell Distribution Width 19.4 % (9.3-17.3); White Blood Count 27.5 T/CUMM (4-12)
[2021-08-11 05:11] LABS: Band Neutrophils 1 % (0-10); Eosinophils 4 % (0-10); Lymphocytes 7 % (20-55); Nucleated Red Blood Cells 1 (0-5); Platelet Estimate Adequate; Total Cells Counted 100
[2021-08-11] MEDS: LACTULOSE 20 GM/30 ML UDCUP PO SCH ×4 (05:15→23:57)
[2021-08-11] MEDS: INSULIN LISPRO 100 UNIT/ML SUBCUT SCH ×4 (05:16→23:57)
[2021-08-11 05:20] LABS: Phosphorous 3.2 MG/DL (2.5-4.9)
[2021-08-11 05:22] LABS: Albumin 1.6 G/DL (3.4-5.0); Calcium 8.9 MG/DL (8.5-10.1); Osmolality,Calculated 289.7 MOS/KG (273-304); Potassium 2.7 MMOL/L (3.5-5.1); Total Protein 6.9 G/DL (6.4-8.2)
[2021-08-11 05:27] LABS: Bilirubin,Total 29.1 MG/DL (0.20-1.00)
[2021-08-11] MEDS ORDERED: POTASSIUM CHLORIDE 20 MEQ TABLET PO ONE (05:34)
[2021-08-11] MEDS: FAMOTIDINE 20 MG/2 ML VIAL IV SCH (08:58)
[2021-08-11] MEDS: FOLIC ACID INJ 1 MG in SYRINGE 1 EACH IV SCH (09:03)
[2021-08-11] MEDS: ERTAPENEM 500 MG in SODIUM CHLORIDE 0.9% 100 ML IV SCH (14:56)
[2021-08-11] MEDS ORDERED: MORPHINE 2 MG/1 ML SYRINGE IV ONE (15:15)
[2021-08-11] MEDS ORDERED: ALBUMIN 5% 25 GM/500 ML VIAL IV ONE (17:37)
[2021-08-11] MEDS: QUEtiapine 25 MG TABLET PER TUBE SCH (20:44)
[2021-08-11] MEDS: NOREPINEPHRINE 8 MG in SODIUM CHLORIDE 0.9% 242 ML IV PRN (22:06)
[2021-08-12 03:38] LABS: Basophils # 0.1 10*3/uL (0.0-0.2); Basophils % 0.2 % (0.0-0.8); Eosinophils # 0.2 10*3/uL (0.0-0.87); Eosinophils % 0.6 % (0.00-10.9); Hematocrit 21.6 VOL% (42.0-52.0); Hemoglobin 7.2 GM/DL (14.0-18.0); Immature Granulocytes % 19.5 %; Immature Granulocytes Absolute 6.78 #; Lymphocytes # 1.5 10*3/uL (1.4-4.0); Lymphocytes % 4.2 % (21.2-54.2); Mean Corpuscular HGB Conc 33.3 GM/DL (32-36); Mean Corpuscular Volume 94.3 FL (87-102); Mean Platelet Volume 12.2 FL (9.6-12.0); Monocytes # 1.8 10*3/uL (0.11-0.8); Monocytes % 5.1 % (1.7-12.7); NRBC # 0.41 10*3/uL; Neutrophils % 70.4 % (38.7-73.9); Platelet Count 186 T/CUMM (130-400); Red Blood Count 2.29 MC/CUMM (3.8-5.5); Red Cell Distribution Width 19.9 % (9.3-17.3); White Blood Count 34.7 T/CUMM (4-12)
[2021-08-12 04:05] LABS: Band Neutrophils 1 % (0-10); Eosinophils 3 % (0-10); Lymphocytes 8 % (20-55); Metamyelocytes 1 %; Myelocytes 8 %; Total Cells Counted 100
[2021-08-12 04:06] LABS: Platelet Estimate Adequate; Target Cells 1+
[2021-08-12 04:12] LABS: Arterial Base Excess iSTAT -7 MMOL/L (-2.5-2.5); Arterial Bicarbonate iSTAT 18.8 MMOL/L (20-26); Arterial O2 Saturation iSTAT 99 % (95-100); Arterial PCO2 iSTAT 36 MM HG (35-48); Arterial PO2 iSTAT 129 MM HG (80-95); Arterial Total CO2 iSTAT 20 MMO/L (23-27); Arterial pH iSTAT 7.322 (7.35-7.45)
[2021-08-12 04:26] LABS: Albumin 1.8 G/DL (3.4-5.0); Calcium 8.7 MG/DL (8.5-10.1)
[2021-08-12 04:34] LABS: Bilirubin,Total 29.9 MG/DL (0.20-1.00)
[2021-08-12] MEDS: INSULIN LISPRO 100 UNIT/ML SUBCUT SCH ×4 (05:12→18:23)
[2021-08-12] MEDS: LACTULOSE 20 GM/30 ML UDCUP PO SCH ×3 (05:28→18:00)
[2021-08-12] MEDS: MIDODRINE 5 MG TABLET PO SCH ×3 (08:46→20:16)
[2021-08-12] MEDS: MICAFUNGIN 100 MG in SODIUM CHLORIDE 0.9% 100 ML IV SCH (08:47)
[2021-08-12] MEDS: FOLIC ACID INJ 1 MG in SYRINGE 1 EACH IV SCH (08:48)
[2021-08-12] MEDS: FAMOTIDINE 8 MG/ML 50 ML/BOTTLE PO SCH (11:17)
[2021-08-12] MEDS: NOREPINEPHRINE 8 MG in SODIUM CHLORIDE 0.9% 242 ML IV PRN ×2 (13:00→21:38)
[2021-08-12] MEDS: ERTAPENEM 500 MG in SODIUM CHLORIDE 0.9% 100 ML IV SCH (14:38)
[2021-08-12] MEDS: QUEtiapine 25 MG TABLET PER TUBE SCH (20:16)
[2021-08-13] MEDS: LACTULOSE 20 GM/30 ML UDCUP PO SCH ×4 (00:02→18:00)
[2021-08-13] MEDS: INSULIN LISPRO 100 UNIT/ML SUBCUT SCH ×4 (00:03→17:59)
[2021-08-13] MEDS: LORazepam 1 MG TABLET NG PRN (03:47)
[2021-08-13 04:09] LABS: Arterial Base Excess iSTAT -3 MMOL/L (-2.5-2.5); Arterial Bicarbonate iSTAT 22.1 MMOL/L (20-26); Arterial O2 Saturation iSTAT 97 % (95-100); Arterial PCO2 iSTAT 37 MM HG (35-48); Arterial PO2 iSTAT 93 MM HG (80-95); Arterial Total CO2 iSTAT 23 MMO/L (23-27); Arterial pH iSTAT 7.388 (7.35-7.45)
[2021-08-13 04:10] LABS: Basophils % 0.1 % (0.0-0.8); Eosinophils # 0.5 10*3/uL (0.0-0.87); Eosinophils % 1.3 % (0.00-10.9); Hematocrit 20.4 VOL% (42.0-52.0); Hemoglobin 6.8 GM/DL (14.0-18.0); Immature Granulocytes % 30.4 %; Immature Granulocytes Absolute 12.26 #; Lymphocytes # 1.6 10*3/uL (1.4-4.0); Mean Corpuscular HGB Conc 33.3 GM/DL (32-36); Mean Corpuscular Volume 93.6 FL (87-102); Mean Platelet Volume 12.7 FL (9.6-12.0); Monocytes # 2.3 10*3/uL (0.11-0.8); Monocytes % 5.8 % (1.7-12.7); NRBC # 0.54 10*3/uL; Neutrophils % 58.4 % (38.7-73.9); Platelet Count 104 T/CUMM (130-400); Red Blood Count 2.18 MC/CUMM (3.8-5.5); Red Cell Distribution Width 19.9 % (9.3-17.3)
[2021-08-13 04:13] LABS: White Blood Count 40.3 T/CUMM (4-12)
[2021-08-13 04:50] LABS: Albumin 1.6 G/DL (3.4-5.0); Calcium 8.3 MG/DL (8.5-10.1); Osmolality,Calculated 292.5 MOS/KG (273-304); Potassium 3.2 MMOL/L (3.5-5.1); Total Protein 6.3 G/DL (6.4-8.2)
[2021-08-13 04:58] LABS: Band Neutrophils 4 % (0-10); Eosinophils 2 % (0-10); Lymphocytes 8 % (20-55); Metamyelocytes 2 %; Myelocytes 8 %; Nucleated Red Blood Cells 1 (0-5); Platelet Estimate Adequate
[2021-08-13 04:59] LABS: Hypochromia 1+; Total Cells Counted 100
[2021-08-13] MEDS: FAMOTIDINE 8 MG/ML 50 ML/BOTTLE PO SCH (09:05)
[2021-08-13] MEDS: FOLIC ACID INJ 1 MG in SYRINGE 1 EACH IV SCH (09:06)
[2021-08-13] MEDS: MIDODRINE 5 MG TABLET PO SCH ×3 (09:07→21:43)
[2021-08-13] MEDS: MICAFUNGIN 100 MG in SODIUM CHLORIDE 0.9% 100 ML IV SCH (09:08)
[2021-08-13] MEDS ORDERED: VANCOMYCIN INJ 750 MG in SODIUM CHLORIDE 0.9% 250 ML IV PRN (10:08)
[2021-08-13] MEDS ORDERED: VANCOMYCIN INJ 2,250 MG in SODIUM CHLORIDE 0.9% 500 ML IV ONE (12:00)
[2021-08-13] MEDS: ERTAPENEM 500 MG in SODIUM CHLORIDE 0.9% 100 ML IV SCH (15:13)
[2021-08-13] MEDS: NOREPINEPHRINE 8 MG in SODIUM CHLORIDE 0.9% 242 ML IV PRN (18:32)
[2021-08-13] MEDS: QUEtiapine 25 MG TABLET PER TUBE SCH (21:43)
[2021-08-14] MEDS: LACTULOSE 20 GM/30 ML UDCUP PO SCH ×3 (00:55→12:22)
[2021-08-14] MEDS: INSULIN LISPRO 100 UNIT/ML SUBCUT SCH ×3 (01:09→12:51)
[2021-08-14 04:43] LABS: Arterial Base Excess iSTAT -6 MMOL/L (-2.5-2.5); Arterial Bicarbonate iSTAT 19.3 MMOL/L (20-26); Arterial O2 Saturation iSTAT 92 % (95-100); Arterial PCO2 iSTAT 37 MM HG (35-48); Arterial PO2 iSTAT 69 MM HG (80-95); Arterial Total CO2 iSTAT 20 MMO/L (23-27); Arterial pH iSTAT 7.323 (7.35-7.45)
[2021-08-14 07:02] LABS: Albumin 1.5 G/DL (3.4-5.0); Calcium 8.2 MG/DL (8.5-10.1); Osmolality,Calculated 299.5 MOS/KG (273-304); Potassium 3.1 MMOL/L (3.5-5.1); Total Protein 7.1 G/DL (6.4-8.2)
[2021-08-14 07:04] LABS: Bilirubin,Total 25.8 MG/DL (0.20-1.00)
[2021-08-14 07:41] LABS: Basophils % 0.1 % (0.0-0.8); Eosinophils # 0.3 10*3/uL (0.0-0.87); Eosinophils % 0.7 % (0.00-10.9); Hematocrit 22.1 VOL% (42.0-52.0); Hemoglobin 7.2 GM/DL (14.0-18.0); Immature Granulocytes % 31.3 %; Immature Granulocytes Absolute 14.17 #; Lymphocytes # 1.3 10*3/uL (1.4-4.0); Lymphocytes % 2.9 % (21.2-54.2); Mean Corpuscular HGB Conc 32.6 GM/DL (32-36); Mean Corpuscular Volume 94.8 FL (87-102); Mean Platelet Volume 13.9 FL (9.6-12.0); Monocytes % 4.4 % (1.7-12.7); NRBC # 0.94 10*3/uL; Neutrophils % 60.6 % (38.7-73.9); Red Blood Count 2.33 MC/CUMM (3.8-5.5); Red Cell Distribution Width 20.4 % (9.3-17.3)
[2021-08-14 07:43] LABS: White Blood Count 45.2 T/CUMM (4-12)
[2021-08-14 07:44] LABS: Platelet Count 34 T/CUMM (130-400)
[2021-08-14] MEDS: HYDROmorphone 1 MG/1 ML SYRINGE IV PRN ×2 (08:07→13:25)
[2021-08-14] MEDS ORDERED: NOREPINEPHRINE 16 MG in SODIUM CHLORIDE 0.9% 234 ML IV PRN (08:17)
[2021-08-14] MEDS ORDERED: VASOPRESSIN 100 UNITS in SODIUM CHLORIDE 0.9% 95 ML IV PRN (08:17)
[2021-08-14 08:35] LABS: Anisocytosis 3+; Band Neutrophils 26 % (0-10); Lymphocytes 4 % (20-55); Metamyelocytes 9 %; Myelocytes 11 %; Nucleated Red Blood Cells 1 (0-5); Platelet Estimate Decreased; Promyelocytes 4 %; Total Cells Counted 100
[2021-08-14 08:36] LABS: Polychromasia Slight; Target Cells Few
[2021-08-14] MEDS ORDERED: SODIUM BICARBONATE 50 MEQ/50 ML VIAL IV ONE (08:48)
[2021-08-14] MEDS: FOLIC ACID INJ 1 MG in SYRINGE 1 EACH IV SCH (09:38)
[2021-08-14] MEDS: MIDODRINE 5 MG TABLET PO SCH ×2 (09:39→14:22)
[2021-08-14] MEDS: FAMOTIDINE 8 MG/ML 50 ML/BOTTLE PO SCH (09:39)
[2021-08-14] MEDS: MICAFUNGIN 100 MG in SODIUM CHLORIDE 0.9% 100 ML IV SCH (09:40)
[2021-08-14] MEDS ORDERED: DEXTROSE 50% 25 GM/50 ML SYRINGE IV PRN (12:01)
[2021-08-14] MEDS ORDERED: DEXTROSE 50% 25 GM/50 ML SYRINGE IV ONE (12:02)
[2021-08-14] MEDS ORDERED: MORPHINE 2 MG/1 ML SYRINGE IV PRN (13:24)
[2021-08-14] MEDS ORDERED: DIAZEPAM 10 MG/2 ML SYRINGE IV PRN ×2 (13:24)
[2021-08-14] MEDS: MORPHINE 2 MG/1 ML SYRINGE IV PRN ×3 (14:11→16:55)
[2021-08-14] MEDS: ERTAPENEM 500 MG in SODIUM CHLORIDE 0.9% 100 ML IV SCH (14:22)
[2021-08-14 20:39] VITALS: BP 55/28
== END 2021-08-14 21:14 | disposition expired | DRG 870 ==
LOC: N.ED 11:25 → N.EDINP 17:18 → SUATTDRO 17:18 → N.TELEN 18:56 → N.ICU 07-21 00:40
PROVIDERS: ADMIT Emergency Medicine; ATTEND Internal Medicine
PROC: BRONCHB (2021-08-10 10:20)